=== PATIENT | female | born 1955 | race Caucasian/White ===

== ENCOUNTER 2019-02-26 13:45 | Emergency (ER) | payer MEDICARE ==
[~2019-02-26] VITALS: Ht 152.4 cm; Wt 117.7 kg
--- OUTSIDE RECORDS SUMMARY | ~2019-02-26 | XMS | Clinical Summary ---
Demographics + + + | Address | [address] | | | [place] [address] | + + + | Home Phone | | + + + | Preferred Language | Unknown | + + + | Marital Status | Single | + + + | Jehovah'S Witness Affiliation | Unknown | + + + | Race | Unknown | + + + | Ethnic Group | Unknown | + + + Author + + + | Author | [facility] | + + + | Organization | [facility] | + + + | Address | Unknown | + + + | Phone | Unavailable | + + + Support + + + + + | Name | Relationship | Address | Phone | + + + + + | Hilary Davila | MCKENZIE | Unknown | | + + + + + | Elvira Bernal | ECON | [place] | | | | | [phone] | | + + + + + | Elijah Marie | ECON | Unknown | | + + + + + Care Team Providers + +------+ + | Care Master [place] Name | Role | Phone | + +------+ + | Vasu Rojo DO | PP | | + +------+ + Allergies No Known Allergies Current Medications + + +--------+---------+------+------+-------+ | Prescription | Sig. | Disp. | Refills | Star | End | Statu | | | | | | t | Date | s | | | | | | Date | | | + + +--------+---------+------+------+-------+ | quinapril | Take 5 mg by mouth | | | | | Activ | | (ACCUPRIL) 5 MG | daily. | | | | | e | | tablet | | | | | | | + + +--------+---------+------+------+-------+ | | Inhale 1 puff into | | | | | Activ | | fluticasone-salmeter | the lungs 2 (two) | | | | | e | | ol (ADVAIR) 250-50 | times daily. | | | | | | | MCG/DOSE AEPB | | | | | | | + + +--------+---------+------+------+-------+ | albuterol | Inhale 2 puffs into | | | | | Activ | | (PROVENTIL | the lungs every 6 | | | | | e | | HFA;VENTOLIN HFA) | (six) hours as | | | | | | | 108 (90 BASE) | needed. | | | | | | | MCG/ACT inhaler | | | | | | | + + +--------+---------+------+------+-------+ | citalopram | Take 40 mg by mouth | | | | | Activ | | (CELEXA) 40 MG | daily. | | | | | e | | tablet | | | | | | | + + +--------+---------+------+------+-------+ | lovastatin | Take 40 mg by mouth | | | | | Activ | | (MEVACOR) 40 MG | nightly. | | | | | e | | tablet | | | | | | | + + +--------+---------+------+------+-------+ | trazodone | Take 100 mg by mouth | | | | | Activ | | (DESYREL) 100 MG | nightly. | | | | | e | | tablet | | | | | | | + + +--------+---------+------+------+-------+ | Cholecalciferol | Take 2,000 Units by | | | | | Activ | | 2000 UNITS CAPS | mouth daily. | | | | | e | + + +--------+---------+------+------+-------+ | spironolactone | Take 1 tablet by | 30 | 0 | 10/1 | | Activ | | (ALDACTONE) 100 MG | mouth daily. | tablet | | 6/20 | | e | | tablet | | | | 14 | | | + + +--------+---------+------+------+-------+ | Oxygen (outpatient | Inhale 2 L into the | | | | | Activ | | therapy) | lungs continuous. | | | | | e | + + +--------+---------+------+------+-------+ | metoclopramide | plaese do take | 60 | 0 | 10/2 | | Activ | | (REGLAN) 10 MG | within 20 min meals | tablet | | 2/20 | | e | | tablet | BF, lunch dinner | | | 16 | | | + + +--------+---------+------+------+-------+ | allopurinol | | | | 03/1 | | Activ | | (ZYLOPRIM) 300 MG | | | | /20 | | e | | tablet | | | | 17 | | | + + +--------+---------+------+------+-------+ | furosemide (LASIX) | | | | 01/0 | | Activ | | 80 MG tablet | | | | 4/20 | | e | | | | | | 17 | | | + + +--------+---------+------+------+-------+ | potassium chloride | | | | 01/0 | | Activ | | (K-TAB) 10 MEQ CR | | | | 5/20 | | e | | tablet | | | | 17 | | | + + +--------+---------+------+------+-------+ | Cinnamon 500 MG | Take 500 mg by mouth | | | | | Activ | | capsule | 2 (two) times | | | | | e | | | daily. | | | | | | + + +--------+---------+------+------+-------+ | ondansetron | Take 4 mg by mouth 3 | | | | | Activ | | (ZOFRAN) 4 MG tablet | (three) times daily | | | | | e | | | as needed for | | | | | | | | Nausea. | | | | | | + + +--------+---------+------+------+-------+ | aspirin 325 MG | Take 325 mg by mouth | | | | | Activ | | tablet | daily with | | | | | e | | | breakfast. | | | | | | + + +--------+---------+------+------+-------+ | fish oil omega-3 | Take 1 g by mouth | | | | | Activ | | fatty acids 1000 MG | daily. | | | | | e | | capsule | | | | | | | + + +--------+---------+------+------+-------+ | Turmeric Curcumin | Take 500 mg by mouth | | | | | Activ | | 500 MG CAPS | daily. | | | | | e | + + +--------+---------+------+------+-------+ | promethazine | Take 25 mg by mouth | | | | | Activ | | (PHENERGAN) 25 MG | every 6 (six) hours | | | | | e | | tablet | as needed for | | | | | | | | Nausea. | | | | | | + + +--------+---------+------+------+-------+ | allopurinol | Take 200 mg by mouth | | | 04/1 | 04/0 | Disco | | (ZYLOPRIM) 100 MG | daily. | | | 5/20 | 3/20 | ntinu | | tablet | | | | 13 | 19 | ed | + + +--------+---------+------+------+-------+ | meloxicam (MOBIC) | Take 15 mg by mouth | | | | 04/0 | Disco | | 15 MG tablet | daily. | | | | 3/20 | ntinu | | | | | | | 19 | ed | + + +--------+---------+------+------+-------+ Active Problems + + + | Problem | Noted Date | + + + | Rectal bleeding | 04/17/2016 | + + + | Leukocytosis | 11/27/2015 | + + + | Elevated lipase on 11/26/15 | 11/27/2015 | + + + | Renal mass--seen on CT scan--should f/u with urology as | 11/27/2015 | | outpatient | | + + + | Gastroparesis | 2014 | + + + | Nausea & vomiting | 06/01/2014 | + + + | SIRS (systemic inflammatory response syndrome) | 06/01/2014 | + + + | ARF (acute renal failure) | 06/01/2014 | + + + | Insomnia | 06/01/2014 | + + + | Hyperuricemia | 09/12/2012 | + + + | CKD (chronic kidney disease), stage III | 05/23/2012 | + + + | Diabetes mellitus (HCC) | 05/23/2012 | + + + | Essential hypertension, benign | 05/23/2012 | + + + | Morbid obesity (HCC) | 05/23/2012 | + + + | Pulmonary embolism (HCC) | 05/23/2012 | + + + + + | Overview: In 2003. Was on oral anticoag for <1 yr. | + + + + + | Dyslipidemia | 05/23/2012 | + + + | Vitamin D deficiency | 05/23/2012 | + + + | COPD (chronic obstructive pulmonary disease) | 05/23/2012 | + + + | DARIO on CPAP | 05/23/2012 | + + + Resolved Problems + + + + | Problem | Noted | Resolved | | | Date | Date | + + + + | Hypokalemia | 04/17/20 | | | | 16 | 7 | + + + + Encounters +--------+ + + + + | Date | Type | Specialty | Care Team | Description | +--------+ + + + + | 02/22/ | Office | | Kip Baez, | CKD (chronic kidney | | 2018 | Visit | | ACCOUNTING/FINANCE TUTOR | disease), stage III | | | | | | (Primary Dx); | | | | | | Essential | | | | | | hypertension, | | | | | | benign; | | | | | | Hyperuricemia | +--------+ + + + + | 02/17/ | Documentati | | César | Stacie Only (02/16/19) | | 2019 | on Only | | [place] | | +--------+ + + + + | 02/17/ | Orders Only | | Lindsey, | CKD (chronic kidney | | 2019 | | | [place] | disease), stage III; | | | | | | Essential | | | | | | hypertension, | | | | | | benign; | | | | | | Hyperuricemia | +--------+ + + + + from Last 3 Months Immunizations + + + + | Name | Dates Previously Given | Next Due | + + + + | INFLUENZA PF, | 08/06/2017, 09/11/2015, 09/04/2014 | | | QUADRIVALENT | | | | (PED/ADOL/ADULT) | | | + + + + | INFLUENZA | 09/04/2014 | | | QUADRIVALENT 36+ MO | | | | PRESERV FREE | | | + + + + | Influenza, Trivalent | 09/08/2013, 09/01/2012, 09/02/2009, | | | W/Preservative | 08/31/2008, 09/29/2007, 09/01/2006, | | | | 10/05/2003 | | + + + + | Pneumococcal | 09/08/2013, 11/05/2009, 09/18/2004 | | | Polysaccharide | | | | 23-valent | | | + + + + | Tdap | 09/08/2013, 11/05/2009 | | + + + + Family History + + +------+ + | Medical History | Relation | Name | Comments | + + +------+ + | Cancer | Mother | | | + + +------+ + | Heart defect | Mother | | | + + +------+ + | Cancer | Sister | | | + + +------+ + + +------+ + + | Relation | Name | Status | Comments | + +------+ + + | Maternal Grandmother | | Alive | | + +------+ + + | Mother | | | | + +------+ + + | Sister | | | | + +------+ + + Social History + + + +--------+------+ | Tobacco Use | Types | Packs/Day | Years | Date | | | | | Used | | + + + +--------+------+ | Former Smoker | Cigarettes | 1 | 40 | | + + + +--------+------+ + +---+---+---+ | Smokeless Tobacco: | | | | | Never Used | | | | + +---+---+---+ + + +---------+ + | Alcohol Use | Drinks/We | oz/Week | Comments | | | ek | | | + + +---------+ + | No | | | | + + +---------+ + + + + | Sex Assigned at | Date Recorded | | | | + + + | Not on file | | + + + Last Filed Vital Signs + + + + | Vital Sign | Reading | Time Taken | + + + + | Blood Pressure | 100/58 | 02/22/2019 10:16 AM PDT | + + + + | Pulse | 78 | 02/22/2019 10:16 AM PDT | + + + + | Temperature | 36.7 C (98 F) | 02/09/2018 12:56 PM PDT | + + + + | Respiratory Rate | 18 | 09/12/2016 11:30 AM PDT | + + + + | Oxygen Saturation | 96% | 02/22/2019 10:16 AM PDT | + + + + | Inhaled Oxygen | - | - | | Concentration | | | + + + + | Weight | 110.3 kg (243 lb 1.6 | 02/22/2019 10:16 AM PDT | | | oz) | | + + + + | Height | 152.4 cm (5') | 02/22/2019 10:16 AM PDT | + + + + | Body Mass Index | 47.48 | 02/22/2019 10:16 AM PDT | + + + + Plan of Treatment + + + + + | Health Maintenance | Due Date | Last Done | Comments | + + + + + | Diabetic Eye Exam | | | | | | 4 | | | + + + + + | Diabetic Foot Exam | | | | | | 4 | | | + + + + + | Cervical Cancer | | | | | Screening (Pap) | 4 | | | + + + + + | Breast Cancer | | | | | Screening | 4 | | | | (Mammogram) | | | | + + + + + | Vaccine: Zoster (1 | | | | | of 2) | 4 | | | + + + + + | Vaccine: | | 09/08/2013, 11/05/2009, | | | Pneumococcal 19-64 | 4 | 09/18/2004 | | | Highest Risk (3 of 3 | | | | | - PCV13) | | | | + + + + + | Statin Therapy | | | | | (optimal intensity) | 6 | | | + + + + + | Microalbumin | | 01/27/2017, 03/14/2014 | | | Screening | 8 | | | + + + + + | Hemoglobin A1c | | 08/03/2018, 01/27/2017, | | | | 9 | 11/28/2015, Additional history | | | | | exists | | + + + + + | Vaccine: Influenza | | 08/06/2017, 09/11/2015, | | | (Season Ended) | 9 | 09/04/2014, Additional history | | | | | exists | | + + + + + | Vaccine: | | 09/08/2013, 11/05/2009 | | | Dtap/Tdap/Td (3 - | 3 | | | | Td) | | | | + + + + + | Colon Cancer | | 04/17/2016 | | | Screening | 6 | | | | (Colonoscopy) | | | | + + + + + Procedures + +--------+ + + + | Procedure Name | Priori | Date/Time | Associated Diagnosis | Comments | | | ty | | | | + +--------+ + + + | URIC ACID | Routin | 02/16/2019 | | Results for this | | | e | 10:45 AM | | procedure are in the | | | | PDT | | results section. | + +--------+ + + + | PROTEIN / CREATININE | Routin | 02/16/2019 | CKD (chronic | Results for this | | RATIO, URINE | e | 10:45 AM | kidney disease), | procedure are in the | | | | PDT | stage III Essential | results section. | | | | | hypertension, | | | | | | benign | | | | | | Hyperuricemia | | + +--------+ + + + | RENAL FUNCTION PANEL | Routin | 02/16/2019 | CKD (chronic | Results for this | | | e | 10:45 AM | kidney disease), | procedure are in the | | | | PDT | stage III Essential | results section. | | | | | hypertension, | | | | | | benign | | | | | | Hyperuricemia | | + +--------+ + + + | MAGNESIUM | Routin | 02/16/2019 | CKD (chronic | Results for this | | | e | 10:45 AM | kidney disease), | procedure are in the | | | | PDT | stage III Essential | results section. | | | | | hypertension, | | | | | | benign | | | | | | Hyperuricemia | | + +--------+ + + + | CBC W/AUTO DIFF | Routin | 02/16/2019 | CKD (chronic | Results for this | | (REFLEX TO MANUAL) | e | 10:45 AM | kidney disease), | procedure are in the | | | | PDT | stage III Essential | results section. | | | | | hypertension, | | | | | | benign | | | | | | Hyperuricemia | | + +--------+ + + + from Last 3 Months Results Protein / creatinine ratio, urine (02/16/2019 10:45 AM) + +-------+ + + | Component | Value | Ref Range | Performed At | + +-------+ + + | UR | 127.7 | 0 - 150 | [facility] | | PROTEIN/CREATININE | | | LABORATORY | + +-------+ + + + + | Specimen | + + | Urine | + + + + + + + | Performing | Address | City/State/Zipcode | Phone Number | | Organization | | | | + + + + + | [facility] | [address] | [place] [address] | [phone] | | LABORATORY | [address] | | | + + + + + CBC W/Auto Diff (Reflex to Manual) (02/16/2019 10:45 AM) + + + + + | Component | Value | Ref Range | Performed At | + + + + + | WBC | 6.7 | 4.5 - 11.0 10^3/mL | [facility] | | | | | LABORATORY | + + + + + | RBC | 4.77 | 3.8 - 5.1 10^6/ L | [facility] | | | | | LABORATORY | + + + + + | HGB | 14.7 | 12.0 - 16.0 g/dL | [facility] | | | | | LABORATORY | + + + + + | HCT | 44.5 | 35 - 45 % | [facility] | | | | | LABORATORY | + + + + + | MCV | 93.4 | 81 - 99 fL | [facility] | | | | | LABORATORY | + + + + + | MCH | 31 | 27 - 33 pg | [facility] | | | | | LABORATORY | + + + + + | MCHC | 33 | 30 - 36 g/dL | [facility] | | | | | LABORATORY | + + + + + | PLT | 200 | 140 - 440 K/ L | [facility] | | | | | LABORATORY | + + + + + | RDW SD | 13.5 | 10.5 - 15.0 % | [facility] | | | | | LABORATORY | + + + + + | MPV | | fL | [facility] | | | | | LABORATORY | + + + + + | DIFF TYPE | | | [facility] | | | | | LABORATORY | + + + + + | NEUTROPHILS | 69.1 | 39 - 80 % | [facility] | | | | | LABORATORY | + + + + + | LYMPHOCYTES | 21.2 (A) | 24 - 44 % | [facility] | | | | | LABORATORY | + + + + + | MONOCYTES | 6.8 | 0 - 12 % | [facility] | | | | | LABORATORY | + + + + + | EOSINOPHILS | 2.3 | 0 - 6 % | [facility] | | | | | LABORATORY | + + + + + | BASOPHILS | 0.6 | 0 - 2 % | [facility] | | | | | LABORATORY | + + + + + | NEUTROPHILS ABS | | / L | [facility] | | | | | LABORATORY | + + + + + | LYMPHOCYTES ABS | | / L | [facility] | | | | | LABORATORY | + + + + + | MONOCYTES ABS | | / L | [facility] | | | | | LABORATORY | + + + + + | EOSINOPHILS ABS | | / L | [facility] | | | | | LABORATORY | + + + + + | BASOPHILS ABS | | / L | [facility] | | | | | LABORATORY | + + + + + + + | Specimen | + + | Blood | + + + + + + + | Performing | Address | City/State/Zipcode | Phone Number | | Organization | | | | + + + + + | [facility] | [address] | [place] [address] | [phone] | | LABORATORY | [address] | | | + + + + + Uric acid (02/16/2019 10:45 AM) + +-------+ + + | Component | Value | Ref Range | Performed At | + +-------+ + + | URIC ACID | 2.6 | 2.3 - 6.6 | | + +-------+ + + + + | Specimen | + + | Blood | + + Magnesium (02/16/2019 10:45 AM) + +-------+ + + | Component | Value | Ref Range | Performed At | + +-------+ + + | MAGNESIUM | 2.1 | 1.7 - 2.5 mg/dL | [facility] | | | | | LABORATORY | + +-------+ + + + + | Specimen | + + | Blood | + + + + + + + | Performing | Address | City/State/Zipcode | Phone Number | | Organization | | | | + + + + + | [facility] | [address] | [place] [address] | [phone] | | LABORATORY | [address] | | | + + + + + Renal function panel (02/16/2019 10:45 AM) + +--------+ + + | Component | Value | Ref Range | Performed At | + +--------+ + + | GLUCOSE | 86 | 70 - 100 mg/dL | [facility] | | | | | LABORATORY | + +--------+ + + | BUN | 17 | 6 - 23 mg/dL | [facility] | | | | | LABORATORY | + +--------+ + + | CREATININE | 0.95 | 0.70 - 1.25 mg/dL | [facility] | | | | | LABORATORY | + +--------+ + + | PHOSPHORUS | 3.4 | 2.5 - 5.0 mg/dL | [facility] | | | | | LABORATORY | + +--------+ + + | Albumin | 4.3 | 3.5 - 5.0 | [facility] | | | | | LABORATORY | + +--------+ + + | SODIUM | 141 | 132 - 143 mmol/L | [facility] | | | | | LABORATORY | + +--------+ + + | POTASSIUM | 4.5 | 3.6 - 5.1 mmol/L | [facility] | | | | | LABORATORY | + +--------+ + + | CHLORIDE | 100 | 95 - 112 mmol/L | [facility] | | | | | LABORATORY | + +--------+ + + | CO2 | 28 | 19 - 31 mmol/L | [facility] | | | | | LABORATORY | + +--------+ + + | ANION GAP AGAP | 17.5 | 7 - 21 mmol/L | [facility] | | | | | LABORATORY | + +--------+ + + | GFR MDRD Non Af Amer | | | [facility] | | | | | LABORATORY | + +--------+ + + | Phosphorus,Inorganic | | | [facility] | | | | | LABORATORY | + +--------+ + + | BUN/CREAT | 17.9 | 6.0 - 28.6 | [facility] | | | | | LABORATORY | + +--------+ + + | CALCIUM | 9.5 | 8.5 - 10.3 mg/dL | [facility] | | | | | LABORATORY | + +--------+ + + | EGFR | 59 (A) | 60 - 140 mg/dL | [facility] | | | | | LABORATORY | + +--------+ + + + + | Specimen | + + | Blood | + + + + + + + | Performing | Address | City/State/Zipcode | Phone Number | | Organization | | | | + + + + + | [facility] | [address] | [place] [address] | [phone] | | LABORATORY | [address] | | | + + + + + from Last 3 Months Insurance + +--------+ +------+-------+ + | Payer | Benefi | Subscriber | Type | Phone | Address | | | t Plan | ID | | | | | | / | | | | | | | Group | | | | | + +--------+ +------+-------+ + | MEDICARE | MEDICA | [id number] | | | [address] | | | RE | | | | [place] [address] | | | IP-OP | | | | | + +--------+ +------+-------+ + | [facility] | [place] | [id number] | | | | | | | | | | | | | HEALTH | | | | | | | CARE - | | | | | | | AARP | | | | | + +--------+ +------+-------+ + + +--------+ +--------+ + + | Guarantor Name | Accoun | Relation to | Date | Phone | Billing Address | | | t Type | Patient | of | | | | | | | | | | + +--------+ +--------+ + + | DAY DAVILA | Person | Self [birth year] Home: | [address] | | | al/Fam | | 4 | [phone] | [place] | | | [place]uate | | | [phone] | [phone] | + +--------+ +--------+ + +"
--- OUTSIDE RECORDS SUMMARY | ~2019-02-26 | XMS | Clinical Summary ---
Demographics + + + | Address | [address] | | | [place] [address] | + + + | Home Phone | | + + + | Preferred Language | Unknown | + + + | Marital Status | Single | + + + | Orthodox Affiliation | Unknown | + + + | Race | White | + + + | Ethnic Group | Not or | + + + Author + + + | Author | [facility] | + + + | Organization | [facility] | + + + | Address | Unknown | + + + | Phone | Unavailable | + + + Support + + + + + | Name | Relationship | Address | Phone | + + + + + | PENELOPE CHEN | ECON | [address] | | | | | [place] | | | | | [address] | | + + + + + | CESARFATEMEH | ECON | Unknown | | + + + + + Care Team Providers + +------+ + | Care Field Associate Name | Role | Phone | + +------+ + | Vasu Rojo DO | PP | | + +------+ + Source Comments YUE is fully live on both [facility] Ambulatory and [facility] InPatient.[facility] Allergies Not on File Current Medications Not on file Active Problems Not on file Social History + +-------+ +--------+------+ | Tobacco Use | Types | Packs/Day | Years | Date | | | | | Used | | + +-------+ +--------+------+ | Never Assessed | | | | | + +-------+ +--------+------+ + + + | Sex Assigned at | Date Recorded | | | | + + + | Not on file | | + + + Plan of Treatment + + + + + | Health Maintenance | Due Date | Last Done | Comments | + + + + + | Influenza (Flu) | | | | | vaccination (#1) | 8 | | | + + + + + Results Not on filefrom Last 3 Months Insurance + +--------+ +--------+ + + | Payer | Benefi | Subscriber | Type | Phone | Address | | | t Plan | ID | | | | | | / | | | | | | | Group | | | | | + +--------+ +--------+ + + | MEDICARE | MEDICA | xxxxxxxxxx | Medica | [phone] [address] | | | RE A & | | re | [phone] | [place] [phone] | | | B | | | | | + +--------+ +--------+ + + | COMMERCIAL | INDIVI | xxxxxxxxx | Indemn | | | | INDIVIDUAL | DUAL | | ity | | | | | COMMER | | | | | | | CIAL | | | | | + +--------+ +--------+ + + + +--------+ +--------+ + + | Guarantor Name | Accoun | Relation to | Date | Phone | Billing Address | | | t Type | Patient | of | | | | | | | | | | + +--------+ +--------+ + + | GABRIEL HOUSTON | Person | Self [birth year] | Home: | [address] | | | al/Johnny | | [phone] | [phone] | [place] [address] | | | cuate | | | [phone] | | + +--------+ +--------+ + +"
--- OUTSIDE RECORDS SUMMARY | ~2019-02-26 | XMS ---
Demographics + + + | Address | [address] | | | [place] [address] | + + + | Preferred Language | Unknown | + + + | Marital Status | Unknown | + + + | Alevism Affiliation | Unknown | + + + | Race | Unknown | + + + | Ethnic Group | Unknown | + + + Author + + + | Author | [facility] | + + + | Organization | [facility] | + + + | Address | 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 | | | Active | [id number] | | | | | | | | | | | neuropathy | | | | | | +---------+ + + +--------+ + + | Problem | Benign | I10 | | | Active | [id number] | | | essential | | | | | | | | HTN | | | | | | +---------+ + + +--------+ + + | Problem | 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 | | | Active | [id number] | | | sis due to | | | | | | | | secondary | | | | | | | | diabetes | | | | | | +---------+ + + +--------+ + + | 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 | [id number] | | | diabetes | | | | | | | | mellitus | | | | | | | | without | | | | | | | | complicati | | | | | | | | ons | | | | | | +---------+ + + +--------+ + + | Problem | Vomiting | 787.03 | | | Active | [id number] | +---------+ + + +--------+ + + | Problem | Diabetes | E11.8 | | | Active | [id number] | | | mellitus | | | | | | | | type 2 | | | | | | | | with | | | | | | | | complicati | | | | | | | | ons | | | | | | +---------+ + + +--------+ + + | Problem | Hyperlipid | | E78.5 | | Active | [id number] | | | emia | | | | | | +---------+ + + +--------+ + + | Problem | Hyperlipid | 272.4 | | | Active | [id number] | | | emia | | | | | | +---------+ + + +--------+ + + | Problem | Morbid | 278.01 | | | Active | [id number] | | | obesity | | | | | | +---------+ + + +--------+ + + | Problem | COPD | 496 | | | Active | [id number] | | | [Chronic | | | | | | | | obstructiv | | | | | | | | e | | | | | | | | pulmonary | | | | | | | | disease] | | | | | | +---------+ + + +--------+ + + | Problem | Hypertensi | 401.9 | | | Active | [id number] | | | on | | | | | | +---------+ + + +--------+ + + | Problem | DEPEND-SUP | V46.2 | | | Active | | | | PLEMENT | | | | | | | | OXYGEN | | | | | | +---------+ + + +--------+ + + | Problem | Diabetes | 250.80 | | | Active | [id number] | | | mellitus | | | | | | | | type 2 or | | | | | | | | unspecifie | | | | | | | | d type | | | | | | | | with other | | | | | | | | | | | | | | | | manifestat | | | | | | | | ions, not | | | | | | +---------+ + + +--------+ + + | Problem | LONG-TERM | V58.67 | | | Active | [id number] | | | USE OF | | | | | | | | INSULIN | | | | | | +---------+ + + +--------+ + + ALLERGIES Unknown Allergies SOCIAL HISTORY No smoking Hx information available PLAN OF CARE VITAL SIGNS MEDICATIONS Unknown Medications RESULTS No Results PROCEDURES No Known procedures IMMUNIZATIONS No Known Immunizations"
--- OUTSIDE RECORDS SUMMARY | ~2019-02-26 | XMS ---
Demographics + + + | Address | [address] | | | [place] [address] | + + + | Preferred Language | Unknown | + + + | Marital Status | Unknown | + + + | Baptism Affiliation | Unknown | + + + | Race | Unknown | + + + | Ethnic Group | Unknown | + + + Author + + + | Author | [facility] | + + + | Organization | [facility] | + + + | Address | 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 | | | Active | 479559374 | | | | | | | | | | | neuropathy | | | | | | +---------+ + + +--------+ + + | Problem | Benign | I10 | | | Active | 08814719 | | | essential | | | | | | | | HTN | | | | | | +---------+ + + +--------+ + + | Problem | 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 | | | Active | 514689219 | | | sis due to | | | | | | | | secondary | | | | | | | | diabetes | | | | | | +---------+ + + +--------+ + + | 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 | 570491200 | | | diabetes | | | | | | | | mellitus | | | | | | | | without | | | | | | | | complicati | | | | | | | | ons | | | | | | +---------+ + + +--------+ + + | Problem | Vomiting | 787.03 | | | Active | 320644932 | +---------+ + + +--------+ + + | Problem | Diabetes | E11.8 | | | Active | 899644186 | | | mellitus | | | [...] | | E78.5 | | Active | 20991925 | | | emia | | | | | | +---------+ + + +--------+ + + | Problem | Hyperlipid | 272.4 | | | Active | 12528766 | | | emia | | | | | | +---------+ + + +--------+ + + | Problem | Morbid | 278.01 | | | Active | 557232180 | | | obesity | | | | | | +---------+ + + +--------+ + + | Problem | COPD | 496 | | | Active | 83412553 | | | [Chronic | | | | | | | | obstructiv | | | | | | | | e | | | | | | | | pulmonary | | | | | | | | disease] | | | | | | +---------+ + + +--------+ + + | Problem | Hypertensi | 401.9 | | | Active | 06346873 | | | on | | | | | | +---------+ + + +--------+ + + | Problem | DEPEND-SUP | V46.2 | | | Active | | | | PLEMENT | | | | | | | | OXYGEN | | | | | | +---------+ + + +--------+ + + | Problem | Diabetes | 250.80 | | | Active | 68053585 | | | mellitus | | | [...] | V58.67 | | | Active | 061785116 | | | USE OF | | | | | | | | INSULIN | | | | | | +---------+ + + +--------+ + + ALLERGIES Unknown Allergies SOCIAL HISTORY No smoking Hx information available PLAN OF CARE VITAL SIGNS MEDICATIONS Unknown Medications RESULTS No Results PROCEDURES No Known procedures IMMUNIZATIONS No Known Immunizations"
--- OUTSIDE RECORDS SUMMARY | ~2019-02-26 | XMS | Encounter Summary ---
Demographics + + + | Address | [address] | | | [place] [address] | + + + | Home Phone | | + + + | Preferred Language | Unknown | + + + | Marital Status | Single | + + + | Confucianist Affiliation | Unknown | + + + | Race | Unknown | + + + | Ethnic Group | Unknown | + + + Author + + + | Author | [facility] | + + + | Organization | [facility] | + + + | Address [...] [place] | | | | | [address] | | + + + + + | [place] [facility] | ECON | Unknown | | + + + + + Care Team Providers + +------+ + | Care Dairy Truck Driver Name | Role | Phone | + +------+ + | Vasu Rojo DO | PCP | | + +------+ + Encounter Details +--------+ + + + + | Date | Type | Department | Care Team | Description | +--------+ + + + + | 02/17/ | Orders Only | [facility] | [place], | CKD (chronic kidney | | 2019 | | [address] [address] [place] [address] | disease), stage III; | | | | [address] | | Essential | | | | [place] [address] | | hypertension, | | | | [phone] | | benign; | | | | | | Hyperuricemia | +--------+ + + + + Social History + + + [...] on file | | + + + as of this encounter Plan of Treatment Not on fileas of this encounter Procedures + +--------+ + + + | [...] | | + +--------+ + + + in this encounter Results Protein / creatinine ratio, urine (02/16/2019 [...] + + + | [facility] | [address] | [place] [address] | [phone] | | LABORATORY | Blvd. | | | + + + + + Renal function panel (02/16/2019 10:45 AM) + +--------+ + + | Component | Value | Ref Range | Performed At | + +--------+ + + | GLUCOSE | 86 | 70 - 100 mg/dL | [facility] | | | | [...] + + + | [facility] | [address] | [place] [address] | [phone] | | LABORATORY | Blvd. | | | + + + + + Magnesium (02/16/2019 10:45 AM) + [...] + + + | [facility] | [address] | [place] [address] | [phone] | | LABORATORY | Blvd. | | [...] + + + | [facility] | [address] | [place] [address] | [phone] | | LABORATORY | Blvd. | | | + + + + + in this encounter Visit Diagnoses + + | Diagnosis | + + | CKD (chronic kidney disease), stage III | + + | Essential hypertension, benign | + + | Hyperuricemia | + + | Other abnormal blood chemistry | + +"
--- OUTSIDE RECORDS SUMMARY | ~2019-02-26 | XMS ---
Demographics + + + | Address | [address] | | | [place] [address] | + + + | Preferred Language | Unknown | + + + | Marital Status | Unknown | + + + | Worship Affiliation | Unknown | + + + | Race | Unknown | + + + | Ethnic Group | Unknown | + + + Author + + + | Author | [facility] | + + + | Organization | [facility] | + + + | Address | [address] | | | [place] [address] | + + + | Phone | | + + + Care Team Providers + + + + | Care Miscellaneous Machine Operator Name | Role | Phone | + + + + Unavailable | Unavailable | + + + + PROBLEMS +---------+ + + +--------+ + + | Type | Condition | ICD9-CM | [id number] | Onset | Condition | SNOMED | | | | Code | Code | Dates | Status | Code | +---------+ + + +--------+ + + | Problem | Peripheral | 356.9 | | | Active | 203455241 | | | | | | | | | | | neuropathy | | | | | | +---------+ + + +--------+ + + | Problem | Vomiting | 787.03 | | | Active | 501951508 | +---------+ + + +--------+ + + | Problem | Diabetes | 250.00 | | | Active | 996702027 | +---------+ + + +--------+ + + | 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 | | | (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 | | | | | | | | disease) | | | | | | +---------+ + + +--------+ + + | Problem | Benign | I10 | | | Active | 62629105 | | | essential | | | | | | | | HTN | | | | | | +---------+ + + +--------+ + + | Problem | Hyperlipid | | E78.5 | | Active | 84420916 | | | emia | | | | | | +---------+ + + +--------+ + + | 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 | 585092344 | | | diabetes | | | | | | | | mellitus | | | | | | | | without | | | | | | | | complicati | | | | | | | | ons | | | | | | +---------+ + + +--------+ + + | Problem | 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 | | | Active | 021336045 | | | sis due to | | | | | | | | secondary | | | | | | | | diabetes | | | | | | +---------+ + + +--------+ + + | Problem | Diabetes | E11.8 | | | Active | 130884735 | | | mellitus | | | [...] | 272.4 | | | Active | 41446440 | | | emia | | | | | | +---------+ + + +--------+ + + | Problem | Hypertensi | 401.9 | | | Active | 18013786 | | | on | | | | | | +---------+ + + +--------+ + + | Problem | COPD | 496 | | | Active | 11403996 | | | [Chronic | | | | | | | | obstructiv | | | | | | | | e | | | | | | | | pulmonary | | | | | | | | disease] | | | | | | +---------+ + + +--------+ + + | Problem | DEPEND-SUP | V46.2 | | | Active | [id number] | | | PLEMENT | | | | | 07 | | | OXYGEN | | | | | | +---------+ + + +--------+ + + | Problem | Diabetes | 250.80 | | | Active | 51124520 | | | mellitus | | | [...] | V58.67 | | | Active | 127368867 | | | USE OF | | | | | | | | INSULIN | | | | | | +---------+ + + +--------+ + + | Problem | Morbid | 278.01 | | | Active | 713197375 | | | obesity | | | | | | +---------+ + + +--------+ + + | Problem | Edema | 782.3 | | | Active | 92421122 | +---------+ + + +--------+ + + ALLERGIES + + + + +---------+ | Substance | Reaction | Event Type | Date | Status | + + + + +---------+ | N.K.D.A. | Unknown | Non Drug | Jun, | Unknown | | | | Allergy | | | + + + + +---------+ SOCIAL HISTORY No smoking Hx information available PLAN OF CARE + +---------+ | Activity | Details | + +---------+ +---+ | | +---+ + + + | Follow Up | 3 Months Reason:null | + + + | Pending Test | X ray : Hip Complete 2+views LT | + + + VITAL SIGNS + + + + | Height | 61 in | 2017-07-09 | + + + + | Weight | 262.0 lbs | 2017-07-09 | + + + + | BMI | 49.50 kg/m2 | 2017-07-09 | + + + + | Temperature | 99.1 degrees Fahrenheit | 2017-07-09 | + + + + | Heart Rate | 83 /min | 2017-07-09 | + + + + | Blood pressure systolic | 128 mm Hg | 2017-07-09 | + + + + | Blood pressure diastolic | 70 mm Hg | 2017-07-09 | + + + + MEDICATIONS + + + + + + + +--------+ | Medicati | Instruct | Dosage | Frequenc | Start | End Date | Duration | Status | | on | ions | | y | Date | | | | + + + + + + + +--------+ | Zofran 4 | Orally q | 1 | | 19 May, | | 30 | Active | | MG | 6hr | tablets | | 2017 | | day(s) | | | | prn | | | | | | | + + + + + + + +--------+ | GlipiZID | | TAKE 1 | | | | 90 | Active | | E 10 MG | | TABLET | | | | | | | | | TWICE | | | | | | | | | DAILY | | | | | | + + + + + + + +--------+ | Allopuri | po q day | TAKE 1 | | | | 90 | Active | | nol 300 | | TABLET | | | | | | | MG | | ONE TIME | | | | | | | | | DAILY | | | | | | + + + + + + + +--------+ | Citalopr | | TAKE 1 | | | | 90 | Active | | am | | TABLET | | | | | | | Hydrobro | | EVERY | | | | | | | mide 40 | | DAY | | | | | | | MG | | | | | | | | + + + + + + + +--------+ | Reglan | po tid | TAKE 1 | 8h | | | 30 | Active | | 10 MG | | TABLET | | | | | | | | | FOUR | | | | | | | | | TIMES | | | | | | | | | DAILY | | | | | | | | | 30 | | | | | | | | | MINUTES | | | | | | | | | BEFORE | | | | | | | | | MEALS | | | | | | | | | AND AT | | | | | | | | | BEDTIME | | | | | | + + + + + + + +--------+ | Furosemi | | TAKE 1 | | | | 90 | Active | | de 80 MG | | TABLET | | | | | | | | | TWICE | | | | | | | | | DAILY | | | | | | + + + + + + + +--------+ | Aspirin | Orally | 1 tablet | 24h | | | 30 | Active | | 325 MG | Once a | | | | | day(s) | | | | day | | | | | | | + + + + + + + +--------+ | Advair | | INHALE 1 | | | | 90 | Active | | Diskus | | PUFF | | | | | | | 250-50 | | EVERY 12 | | | | | | | MCG/DOSE | | HOURS | | | | | | + + + + + + + +--------+ | Lorazepa | Orally | 1 tablet | | | | 90 days | Active | | m 0.5 MG | PRN | | | | | | | + + + + + + + +--------+ | Salicyli | External | as | | | | | Active | | c Acid | ly prn | directed | | | | | | + + + + + + + +--------+ | Spironol | Orally | 1 tablet | 24h | Jun, | 13 Aug, | 30 | Active | | actone | Once a | | | 2017 | 2018 | day(s) | | | 50 MG | day | | | | | | | + + + + + + + +--------+ | Trazodon | | TAKE 1 | | | | 90 | Active | | e HCl | | TABLET | | | | | | | 100 MG | | AT | | | | | | | | | BEDTIME | | | | | | + + + + + + + +--------+ | Albutero | Inhalati | 3 ml as | 4h | 03 Apr, | | 90 days | Active | | l | on every | needed | | 2011 | | | | | Sulfate | 4 hrs | | | | | | | | (2.5 | | | | | | | | | MG/3ML) | | | | | | | | | 0.083% | | | | | | | | + + + + + + + +--------+ | Ventolin | | INHALE 2 | | | | 25 | Active | | HFA 108 | | PUFFS | | | | | | | (90 | | EVERY 6 | | | | | | | Base) | | TO 8 | | | | | | | MCG/ACT | | HOURS | | | | | | | | | NEEDED | | | | | | + + + + + + + +--------+ | Potassiu | | TAKE 1 | | | | 90 | Active | | m | | TABLET | | | | | | | Chloride | | EVERY | | | | | | | CR 10 | | DAY | | | | | | | MEQ | | | | | | | | + + + + + + + +--------+ | Lovastat | | TAKE 1 | | | | 90 | Active | | in 40 MG | | TABLET | | | | | | | | | ONE TIME | | | | | | | | | DAILY | | | | | | | | | WITH A | | | | | | | | | MEAL | | | | | | + + + + + + + +--------+ | Prometha | Orally q | 1 tablet | | 09 April, | 14 March, | 30 | Active | | zine HCl | 6hr prn | as | | 2017 | 2018 | day(s) | | | 25 MG | | needed | | | | | | + + + + + + + +--------+ | Citalopr | by mouth | one | 24h | | | 90 days | Active | | am 40mg | daily | | | | | | | + + + + + + + +--------+ | Potassiu | | TAKE 1 | | | | 90 | Active | | m | | TABLET | | | | | | | Chloride | | EVERY | | | | | | | ER 10 | | DAY | | | | | | | MEQ | | | | | | | | + + + + + + + +--------+ | Mobic 15 | Orally | 1 tablet | 24h | Jun, | 14 Dec, | 30 | Active | | MG | Once a | | | 2017 | 2018 | day(s) | | | | day | | | | | | | + + + + + + + +--------+ | Quinapri | | TAKE 1 | | | | 90 | Active | | l HCl 5 | | TABLET | | | | | | | MG | | ONE TIME | | | | | | | | | DAILY | | | | | | + + + + + + + +--------+ RESULTS No Results PROCEDURES No Known procedures IMMUNIZATIONS No Known Immunizations"
--- OUTSIDE RECORDS SUMMARY | ~2019-02-26 | XMS | Clinical Summary ---
Demographics + + + | Address | [address] | | | [place] [address] | + + + | Home Phone | | + + + | Preferred Language | Unknown | + + + | Marital Status | Single | + + + | Zoroastrianism Affiliation | Unknown | + + + [...] [place] | | | | | [address] | | + + + + + | [place] | ECON | Unknown | | + + + + + Care Team Providers + +------+ + | Care Housing Grant Analyst Name | Role | Phone | + +------+ + | Vasu Rojo DO | PP | | + +------+ + Source Comments [facility] is fully live on both [facility] and [facility] Allergies Not on File Current Medications Not [...] | re | [address] | [place] [address] | | | B | | | [...] | 4 | [phone] | [place] [address] | | | cuate | | | [address] | | + +--------+ +--------+ + +"
--- OUTSIDE RECORDS SUMMARY | ~2019-02-26 | XMS | Clinical Summary ---
Demographics + + + | Address | [address] | | | [place] [address] | + + + | Home Phone | | + + + | Preferred Language | Unknown | + + + | Marital Status | Single | + + + | Pentecostalism Affiliation | Unknown | + + + | Race | Unknown | + + + | Ethnic Group | Unknown | + + + Author + + + | Author | [facility] | + + + | Organization | [facility] | + + + | Address [...] [place] | | | | | [address] | | + + + + + | Elijah Marie | ECON | Unknown | | + + + + + Care Team Providers + +------+ + | Care Silver Recovery Operator Name | Role | Phone | [...] | | 2018 | Visit | | ASSEMBLY RIVETER | disease), stage III | | | [...] + + + | [facility] | [address] | [place] [address] | [phone] | | LABORATORY | Blvd. | | [...] + + + | [facility] | [address] | [place] [address] | [phone] | | LABORATORY | Blvd. | | [...] | + + + + + | [facility] | [address] | [place] [address] | [phone] | | LABORATORY | Blvd. | | | + + + + + Renal function panel (02/16/2019 10:45 AM) + +--------+ + + | Component | Value | Ref Range | Performed At | + +--------+ + + | GLUCOSE | 86 | 70 - 100 mg/dL | [facility] | | | | | LABORATORY | [...] | + + + + + | [facility] | [address] | [place] [address] | [phone] | | LABORATORY | Blvd. | | [...] +------+-------+ + | MEDICARE | MEDICA | [id number] | | | [address] | | | RE | | | | [place] [address] | | | IP-OP | | | | | + +--------+ +------+-------+ + | [facility] | [place] | [id number] | | | | | | | [...] | | | cuate | | | [address] | [phone] | + +--------+ +--------+ + +"
--- OUTSIDE RECORDS SUMMARY | ~2019-02-26 | XMS | Encounter Summary ---
Demographics + + + | Address | [address] | | | [place] [address] | + + + | Home Phone | | + + + | Preferred Language | Unknown | + + + | Marital Status | Single | + + + | Yarsani Affiliation | Unknown | + + + | Race | Unknown | + + + | Ethnic Group | Unknown | + + + Author + + + | Author | [facility] | + + + | Organization | [facility] | + + + | Address [...] [place] | | | | | [address] | | + + + + + | [place] | ECON | Unknown | | + + + + + Care Team Providers + +------+ + | Care Leaf Blender Name | Role | Phone | + [...] | | Essential | | | | [place] [address] | | hypertension, | | | | [phone] | | benign; | | | | [...] + + + | [facility] | [address] | [place] [address] | [phone] | | LABORATORY | Blvd. | | [...] + + + | [facility] | [address] | [place] [address] | [phone] | | LABORATORY | Blvd. | | [...] + + + | [facility] | [address] | [place] [address] | [phone] | | LABORATORY | Blvd. | | [...] | [address] | [place] [address] | [phone] | | LABORATORY | Blvd. | | | + + + + + in this encounter Visit Diagnoses + + | Diagnosis | + + | CKD (chronic kidney disease), stage III | + + | Essential hypertension, benign | + + | Hyperuricemia | + + | Other abnormal blood chemistry | + +"
--- OUTSIDE RECORDS SUMMARY | ~2019-02-26 | XMS | Encounter Summary ---
Demographics + + + | Address | [address] | | | [place] [address] | + + + | Home Phone | | + + + | Preferred Language | Unknown | + + + | Marital Status | Single | + + + | Buddhism Affiliation | Unknown | + + + | Race | Unknown | + + + | Ethnic Group | Unknown | + + + Author + + + | Author | [facility] | + + + | Organization | [facility] | + + + | Address [...] [place] | | | | | [address] | | + + + + + | FrankElijah | ECON | Unknown | | + + + + + Care Team Providers + +------+ + | Care Car Sealer Name | Role | Phone | + +------+ + | Vasu Rojo DO | PCP | | + +------+ + Encounter Details +--------+---------+ + + + | Date | Type | Department | Care Team | Description | +--------+---------+ + + + | 02/22/ | Office | [facility] | JethrojessicaKip, | CKD (chronic kidney | | 2019 | Visit | [address] | DOOR TO DOOR FUNDRAISING COLLECTOR Jairon GIRALDO | disease), stage III | | | | [address] | [address] | (Primary Dx); | | | | [place] [address] | [place] [address] | Essential | | | | [phone] | [phone] | hypertension, | | | | | | benign; | | | | | | Hyperuricemia | +--------+---------+ + + + Social History + + [...] + + + as of this encounter Last Filed Vital Signs + + + + | Vital Sign | Reading | Time Taken | + + + + | Blood Pressure | 100/58 | 02/22/2019 10:16 AM PDT | + + + + | Pulse | 78 | 02/22/2019 10:16 AM PDT | + + + + | Temperature | - | - | + + + + | Respiratory Rate | - | - | + + + + | Oxygen [...] AM PDT | + + + + in this encounter Instructions Patient Instructions - Kip Baez ARNP - 02/22/2019 10:00 AM PDTMedication Changes made at today's visit: None Next LAB WORK in about: 6 Months You do NOT need to fast for this lab work, keep hydrated. Next APPOINTMENT: in about 6 Months Please have lab work done 1 weeks prior to your appointment. Make sure you are well hydrated prior to going to the lab and are able to give a urine s ample. Call the office with any questions or concerns. Please bring all of your medications in the pharmacy bottles to every visit so a medicat ion review can be done. We recommend to measure your BP at least daily, twice daily if possible, record it and b ring record to every appointment with every healthcare provider you see. DO NOT TAKE any anti-inflammatory drugs such Ibuprofen, Diclofenac, Motrin, Advil, Salguero xicam, naprosyn (Aleve), Celebrex, decongestants containing pseudoephedrine (such as some fo johnie of Sudafed or Actifed) or herbal supplements (because of lack of FDA approval) Call our office if you have blood pressure over 150/90 on more than one occasion, or low blood pressure that is concerning. If you experience diarrhea and /or vomiting for more than 24 hours with no relief please seek medical help immediately. The treatments that are recommended to slow the progression of Chronic Kidney Disease in clude blood sugar control, blood pressure control, healthy body weight (BMI less than 30 kg/ m2), avoid sedentary lifestyle, avoid smoking/ tobacco, avoid NSAIDs, worsening nausea, vomi ting, no or low appetite and/or frequent diarrhea and avoid IV contrast. Do not drink alcohol, drink water when thirsty. If you smoke, you must quit. Smoking worsens kidney disease. Avoid caffeinated beverages such as soda pop, coffee, espresso drinks, energy drinks. Make all healthcare providers aware of the presence of kidney disease and request to adj ust all medications according to level of kidney function and to avoid nephrotoxic medicatio ns if possible, including but not limited to antibiotics. Call us with any questions. Short term use of acetaminophen (Tylenol) for fever or pain is okay. If in doubt please call our office for verification. Avoid exposure to IV contrast agents (DYE) used in CT scans, MRI's, Fluoroscopy, or in h eart catheterization procedures unless necessary or for a life saving procedure. Low salt diet, less than 2gm daily. in this encounter Progress Notes Kip Baez ARNP - 02/22/2019 10:00 AM PDTFormatting of this note may be different f rom the original. Patient Active Problem List Diagnosis CKD (chronic kidney disease), stage III Diabetes mellitus (HCC) Essential hypertension, benign Morbid obesity (HCC) Pulmonary embolism (HCC) Dyslipidemia Vitamin D deficiency COPD (chronic obstructive pulmonary disease) DARIO on CPAP Hyperuricemia Nausea & vomiting SIRS (systemic inflammatory response syndrome) ARF (acute renal failure) Insomnia Gastroparesis Leukocytosis Elevated lipase on 11/26/15 Renal mass--seen on CT scan--should f/u with urology as outpatient Rectal bleeding Dear Dr Rojo: I saw your patient Ms. Davila in the office today. she is here to F/U on her CKD & its com plications. 11/2015 She was admitted for nausea and vomiting, acute on chronic renal failure which impro krystian with IV hydration. She takes Zofran PRN for nausea. she tells me that she's had no history of urinary retention, gross hematuria or dysuria. s he has no significant incontinence symptoms. No symptoms of UTI. she has 1-2 nightly noctur ia. No history of passing kidney stones.she has no foamy urine either. her baseline Creatin ine is 1.6 mg/dL. She wears O2 per NC at 2L. she says that she feels 'good ' today. Chronic hip pains. she denies any blurred vision, t innitus, headache, fever, chills, or cough. No nausea, vomiting, abdominal pain, diarrhea, melena, or hematochezia. No chest pain, palpitation, dizziness, loss of consciousness, orthopnea, paroxysmal nocturn al dyspnea, or leg edema. She is on a CPAP at night. She was on meloxicam in the past, stopped in mid 2017. Started on celebrex in fall of 2017. The following portions of the patient's history were reviewed and updated as appropriate: a llergies, current medications, past medical history, past social history, past surgical hist ory, family history and problem list. CT abdomen pelvis done 02/2016 showin. No acute findings in the abdomen or pelvis to explain vomiting. 2. Patient is status post cholecystectomy. 3. Kidneys show mild perinephric stranding and simple lower pole cysts bilaterally testin g chronic renal disease. 4. An exophytic 2.1 cm hyperdense cyst is noted arising from the lateral upper pole of th e left kidney unchanged from November 2015. Correlation with sonography is suggested. 5. Severe right hip DJD, mild left hip DJD. 6. Moderate to severe DJD in the thoracic and lumbar spine as described above. 7. L5-S1 severe degenerative facet hypertrophy and distraction causes a grade 1 anterior spondylolisthesis and severe canal stenosis. CT abdomen pelvis done 08/2014 showin. No definite cause for vomiting noted. 2. Kidneys show perinephric stranding suggesting chronic renal disease. 3. 2 cm simple cyst seen on the lateral margin of the left kidney. 4. Minimal sigmoid diverticulosis noted. 5. Degenerative disk disease noted in the thoracic and lumbar spine. As in History of Present Illness. All the pertinent systems were reviewed and were otherwis e negative. Current Outpatient Prescriptions Medication Sig Dispense Refill albuterol (PROVENTIL HFA;VENTOLIN HFA) 108 (90 BASE) MCG/ACT inhaler Inhale 2 puffs int o the lungs every 6 (six) hours as needed. citalopram (CELEXA) 40 MG tablet Take 40 mg by mouth daily. fish oil omega-3 fatty acids 1000 MG capsule Take 1 g by mouth daily. fluticasone-salmeterol (ADVAIR) 250-50 MCG/DOSE AEPB Inhale 1 puff into the lungs 2 (tw o) times daily. furosemide (LASIX) 80 MG tablet lovastatin (MEVACOR) 40 MG tablet Take 40 mg by mouth nightly. metoclopramide (REGLAN) 10 MG tablet plaese do take within 20 min meals BF, lunch dinne r 60 tablet 0 ondansetron (ZOFRAN) 4 MG tablet Take 4 mg by mouth 3 (three) times daily as needed for Nausea. potassium chloride (K-TAB) 10 MEQ CR tablet quinapril (ACCUPRIL) 5 MG tablet Take 5 mg by mouth daily. spironolactone (ALDACTONE) 100 MG tablet Take 1 tablet by mouth daily. 30 tablet 0 trazodone (DESYREL) 100 MG tablet Take 100 mg by mouth nightly. Turmeric Curcumin 500 MG CAPS Take 500 mg by mouth daily. allopurinol (ZYLOPRIM) 300 MG tablet aspirin 325 MG tablet Take 325 mg by mouth daily with breakfast. Cholecalciferol 2000 UNITS CAPS Take 2,000 Units by mouth daily. Cinnamon 500 MG capsule Take 500 mg by mouth 2 (two) times daily. Oxygen (outpatient therapy) Inhale 2 L into the lungs continuous. promethazine (PHENERGAN) 25 MG tablet Take 25 mg by mouth every 6 (six) hours as needed for Nausea. No current facility-administered medications for this visit. Physical Exam: BP 100/58 (BP Location: Right upper arm, Patient Position: Sitting) | Pulse 78 | Ht 1.524 m (5') | Wt 110.3 kg (243 lb 1.6 oz) | SpO2 96% | BMI 47.48 kg/m General appearance: Pleasant, not in acute distress. O2 on per NC 2L. Uses W/C now. Neck: Supple without tracheal deviation or jugular venous distension. Head and ENT: Head is atraumatic. The oropharynx is without erythema or thrush. Eyes: Anicteric. The extraocular muscle movements are normal. Lungs: Clear to auscultation bilaterally. There are no wheezes. Heart: Regular rate and rhythm without any rub, gallop. no murmur. Abdominal exam: Obese. Soft and nontender with normal bowel sounds. Musculoskeletal: No costovertebral angle tenderness bilaterally. Extremities: Warm to touch with trace leg edema. There is no cyanosis. Skin: There are no rashes, petechiae, or ecchymosis. Neurological: Awake, alert, and oriented to time, place, and person. Normal gross motor po wer. There is no asterixis. Psychiatric: The patient s behavior is normal. Judgment and thought content are normal. Lab Results Component Value Date BUN 17 02/16/2019 CREATININE 0.95 02/16/2019 EGFR 59 (A) 02/16/2019 NA 141 02/16/2019 K 4.5 02/16/2019 CL 100 02/16/2019 CO2 28 02/16/2019 CA 9.5 02/16/2019 PHOS 3.4 02/16/2019 MG 2.1 02/16/2019 ALB 4.3 02/16/2019 HGB 14.7 02/16/2019 URICACID 2.6 02/16/2019 WBC 6.7 02/16/2019 HCT 44.5 02/16/2019 LABPROT 127.7 02/16/2019 [id number] 08/19/2017 Assessment: Ms. Davila is a 63 y.o. female patient with stage IIIB CKD on a background of longstanding diabetes, hypertension, morbid obesity. 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 RENAL FUNCTION: Relatively stable BLOOD PRESSURE: Reports controlled - no log today BLOOD SUGAR: Reportedly controlled ELECTROLYTES: Normal ANEMIA: None VITAMIN D: Deficiency has resolved with treatment PARATHYROID HORMONE: Mild URIC ACID: Improved with treatment PROTEINURIA: Minimal URINALYSIS: No UTI or hematuria VOLUME STATUS: Euvolumic Discussions/Recommendations: I discussed today with Ms.. Davila the meaning of her CKD and the interaction of that with her diabetes & hypertension. I stressed the importance of keeping her BG & BP controlled an d avoiding getting dehydrated if we are to have a chance at helping preserve her renal funct ion. she showed good understanding. I gave her instructions on how to chart her blood pres sure in the appropriate manner at home. she is to call us if they fall outside of the optim al provided range. she will bring her sphygmomanometer for validation once a year. she elisha l strictly abide by a low salt diet and will avoid all kinds of NSAIDs for analgesia. PLAN: No medication changes today. I recommend she avoid all NSAIDs including celebrex and meloxicam. BP Charting: she will bring me back her home BP charts in 2 weeks. At that time, I will decide whether any changes to her vasoactive regimen are warranted. Follow up labs include: RFP, Magnesium, CBC, uric acid, Urine total tzuwqad-yw-ryxbwwdkl e ratio and other labs as indicated. I advised her to exercise regularly but safely & to try to lose weight methodically; She voiced good understanding. Discussed to avoid alcohol and caffeine. She will continue to F/U with your office regularly. She will have labs done before she comes back in [address] Rojo for the opportunity to follow up with this patient and be part of the care team. Please do not hesitate to call me at any time with questions or concerns. Truly yours, Kip Baez DOOR TO DOOR FUNDRAISING COLLECTOR [facility] Nephrologyin this encounter Plan of Treatment + +--------+ + + | Name | Priori | Associated Diagnoses | Order Schedule | | | ty | | | + +--------+ + + | Renal function panel | Routin | CKD (chronic | Expected: | | | e | kidney disease), | 08/22/2019, Expires: | | | | stage III Essential | 11/21/2019 | | | | hypertension, | | | | | benign | | | | | Hyperuricemia | | + +--------+ + + | CBC W/Auto Diff (Reflex to | Routin | CKD (chronic | Expected: | | Manual) | e | kidney disease), | 08/22/2019, Expires: | | | | stage III Essential | 11/21/2019 | | | | hypertension, | | | | | benign | | | | | Hyperuricemia | | + +--------+ + + | Magnesium | Routin | CKD (chronic | Expected: | | | e | kidney disease), | 08/22/2019, Expires: | | | | stage III Essential | 11/21/2019 | | | | hypertension, | | | | | benign | | | | | Hyperuricemia | | + +--------+ + + | Uric acid | Routin | CKD (chronic | Expected: | | | e | kidney disease), | 08/22/2019, Expires: | | | | stage III Essential | 11/21/2019 | | | | hypertension, | | | | | benign | | | | | Hyperuricemia | | + +--------+ + + | Protein / creatinine ratio, urine | Routin | CKD (chronic | Expected: | | | e | kidney disease), | 08/22/2019, Expires: | | | | stage III Essential | 11/21/2019 | | | | hypertension, | | | | | benign | | | | | Hyperuricemia | | + +--------+ + + as of this encounter Visit Diagnoses + + | Diagnosis | + + | CKD (chronic kidney disease), stage III - Primary | + + | Essential hypertension, benign | + + | Hyperuricemia | + + | Other abnormal blood chemistry | + +"
--- OUTSIDE RECORDS SUMMARY | ~2019-02-26 | XMS | Encounter Summary ---
Demographics + + + | Address | [address] | | | [place] [address] | + + + | Home Phone | | + + + | Preferred Language | Unknown | + + + | Marital Status | Single | + + + | Episcopal Affiliation | Unknown | + + + | Race | Unknown | + + + | Ethnic Group | Unknown | + + + Author + + + | Author | [facility] | + + + | Organization | [facility] | + + + | Address [...] [place] | | | | | [address] | | + + + + + | FrankElijah | ECON | Unknown | | + + + + + Care Team Providers + +------+ + | Care Mine Safety Director Name | Role | Phone | + +------+ + | Vasu Rojo DO | PCP | | + +------+ + Encounter Details +--------+---------+ + + + | Date | Type | Department | Care Team | Description | +--------+---------+ + + + | 02/22/ | Office | [facility] | JethrojessicaKip, | CKD (chronic kidney | | 2019 | Visit | [place] [address] | MATERIAL SPECIALIST Jairon GIRALDO | disease), stage III | | | | [address] | [address] | (Primary Dx); | | | | [place] [address] | [place] [address] | Essential | | | | [phone] | [phone] | hypertension, | | | | | [...] 02/16/2019 HCT 44.5 02/16/2019 LABPROT 127.7 02/16/2019 [id number] 08/19/2017 Assessment: Ms. Davila is a [...] RFP, Magnesium, CBC, uric acid, Urine total ztwblvt-ih-xpanafpdy e ratio and other labs as indicated. [...] questions or concerns. Truly yours, Kip Baez MATERIAL SPECIALIST [facility] Nephrologyin this encounter Plan of Treatment [...]
--- OUTSIDE RECORDS SUMMARY | ~2019-02-26 | XMS | Encounter Summary ---
Demographics + + + | Address | [address] | | | [place] [address] | + + + | Home Phone | | + + + | Preferred Language | Unknown | + + + | Marital Status | Single | + + + | Religion Affiliation | Unknown | + + + | Race | Unknown | + + + | Ethnic Group | Unknown | + + + Author + + + | Author | [facility] | + + + | Organization | [facility] | + + + | Address [...] [place] | | | | | [address] | | + + + + + | FrankElijah | ECON | Unknown | | + + + + + Care Team Providers + +------+ + | Care Imaging Engineer Name | Role | Phone | + +------+ + | Vasu Rojo DO | PCP | | + +------+ + Reason for Visit + + + | Reason | Comments | + + + | Labs Only | 02/16/19 | + + + Encounter Details +--------+ + + + + | Date | Type | Department | Care Team | Description | +--------+ + + + + | 02/17/ | Documentati | [facility] | César, | Labs Only (02/16/19) | | 2019 | on Only | [place] [address] | | | | | [address] | | | | | | [place] [address] | | | | | | [phone] | | | +--------+ + + + + Social [...] section. | + +--------+ + + + in this encounter Results Uric acid (02/16/2019 10:45 AM) + +-------+ + + | Component | Value | Ref Range | Performed At | + +-------+ + + | URIC ACID | 2.6 | 2.3 - 6.6 | | + +-------+ + + + + | Specimen | + + | Blood | + + in this encounter Visit Diagnoses Not on filein this encounter"
--- OUTSIDE RECORDS SUMMARY | ~2019-02-26 | XMS ---
Demographics + + + | Address | [address] | | | [place] [address] | + + + | Preferred Language | Unknown | + + + | Marital Status | Unknown | + + + | Judaism Affiliation | Unknown | + + + | Race | Unknown | + + + | Ethnic Group | Unknown | + + + Author + + + | Author | [facility] | + + + | Organization | [facility] | + + + | Address | [address] | | | [place] [address] | + + + | Phone | | + + + Care Team Providers + + + + | Care Etcher Enameling Name | Role | Phone | + + + + Unavailable | Unavailable | + + + + PROBLEMS + + + + + + + + | Type | Condition | ICD9-CM | UCH17-ON | Onset | Condition | SNOMED | | | | Code | Code | Dates | Status | Code | + + + + + + + + | Problem | Edema | 782.3 | | | Active | 00491198 | + + + + + + + + | Problem | Diabetes | 250.00 | | | Active | [id number] | + + + + + + + + | Problem | Peripheral | 356.9 | | | Active | [id number] | | | | | | | | | | | neuropathy | | | | | | + + + + + + + + | Problem | Benign | I10 | | | Active | 35130149 | | | essential | | | | | | | | HTN | | | | | | + + + + + + + + | Problem | 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 | | | Active | [id number] | | | sis due to | | | | | | | | secondary | | | | | | | | diabetes | | | | | | + + + + + + + + | 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 | [id number] | | | diabetes | | | | | | | | mellitus | | | | | | | | without | | | | | | | | complicati | | | | | | | | ons | | | | | | + + + + + + + + | Problem | Vomiting | 787.03 | | | Active | 394159264 | + + + + + + + + | Problem | Diabetes | E11.8 | | | Active | [id number] | | | mellitus | | | | | | | | type 2 | | | | | | | | with | | | | | | | | complicati | | | | | | | | ons | | | | | | + + + + + + + + | Problem | Hyperlipid | | E78.5 | | Active | 56430909 | | | emia | | | | | | + + + + + + + + | Assessment | Type 2 | | E11.9 | 09 April, | Active | [id number] | | | diabetes | | | 2016 | | | | | mellitus | | | | | | | | without | | | | | | | | complicati | | | | | | | | ons | | | | | | + + + + + + + + | Problem | Hyperlipid | 272.4 | | | Active | 59485140 | | | emia | | | | | | + + + + + + + + | Assessment | Nagana | B56.9 | | 09 April, | Active | [id number] | | | | | | 2016 | | | + + + + + + + + | Problem | Morbid | 278.01 | | | Active | [id number] | | | obesity | | | | | | + + + + + + + + | Problem | COPD | 496 | | | Active | 56774408 | | | [Chronic | | | | | | | | obstructiv | | | | | | | | e | | | | | | | | pulmonary | | | | | | | | disease] | | | | | | + + + + + + + + | Problem | Hypertensi | 401.9 | | | Active | 84456180 | | | on | | | | | | + + + + + + + + | Problem | DEPEND-SUP | V46.2 | | | Active | | | | PLEMENT | | | | | | | | OXYGEN | | | | | | + + + + + + + + | Problem | Diabetes | 250.80 | | | Active | 81758146 | | | mellitus | | | [...] not | | | | | | + + + + + + + + | Problem | LONG-TERM | V58.67 | | | Active | [id number] | | | USE OF | | | | | | | | INSULIN | | | | | | + + + + + + + + ALLERGIES + + + + +---------+ | Substance | Reaction | Event Type | Date | Status | + + + + +---------+ | Saida | Unknown | Non Drug | March, | Unknown | | | | Allergy | | | + + + + +---------+ SOCIAL HISTORY No smoking Hx information available PLAN OF CARE VITAL SIGNS + + + + | Height | 61 in | 2017-04-09 | + + + + | Weight | 268.0 lbs | 2017-04-09 | + + + + | BMI | 50.63 kg/m2 | 2017-04-09 | + + + + | Temperature | 97.6 degrees Fahrenheit | 2017-04-09 | + + + + | Heart Rate | 101 /min | 2017-04-09 | + + + + | Blood pressure systolic | 140 mm Hg | 2017-04-09 | + + + + | Blood pressure diastolic | 64 mm Hg | 2017-04-09 | + + + + MEDICATIONS + [...] + + + +--------+ | Allopuri | | TAKE 1 | | | [...] Orally q | 1 tablet | | 19 March, | 14 March, | 30 | Active | | zine HCl | 6hr prn | as | | 2017 | 2018 | day(s) | | | 25 MG | | needed | | | | | | + + + + + + + +--------+ | Trazodon | Orally | 1 tablet | 24h | | | 90 days | Active | | e HCl | Once a | at | | | | | | | 100 mg | day | bedtime | | | | | | + + + + + + + +--------+ | Emiliafran 4 | Orally q | 1 | | 09 April, | | 30 | Active | | MG | 6hr | tablets | | 2016 | | day(s) | | | | prn | | | | | | | + + + + + + + +--------+ RESULTS No Results PROCEDURES + + + + + | Procedure | Date Ordered | Related Diagnosis | Body Site | + + + + + | Office Visit, Est | April 09, 2017 | | | | Pt., Level 3 | | | | + + + + + IMMUNIZATIONS No Known Immunizations"
--- OUTSIDE RECORDS SUMMARY | ~2019-02-26 | XMS | Encounter Summary ---
Demographics + + + | Address | [address] | | | [place] [address] | + + + | Home Phone | | + + + | Preferred Language | Unknown | + + + | Marital Status | Single | + + + | Methodist Affiliation | Unknown | + + + | Race | Unknown | + + + | Ethnic Group | Unknown | + + + Author + + + | Author | [facility] | + + + | Organization | [facility] | + + + | Address [...] [place] | | | | | [address] | | + + + + + | FrankElijah | ECON | Unknown | | + + + + + Care Team Providers + +------+ + | Care Architectural Wood Model Maker Name | Role | Phone | + [...] | | 2019 | on Only | [place] [address] | [address] | | | | | [address] | | | | | | [place] [address] | | | | | | [phone] | | | +--------+ + + + [...]
--- OUTSIDE RECORDS SUMMARY | ~2019-02-26 | XMS ---
Demographics + + + | Address | [address] | | | [place] [address] | + + + | Preferred Language | Unknown | + + + | Marital Status | Unknown | + + + | Caodaism Affiliation | Unknown | + + + | Race | Unknown | + + + | Ethnic Group | Unknown | + + + Author + + + | Author | [facility] | + + + | Organization | [facility] | + + + | Address | [address] | | | [place] [address] | + + + | Phone | | + + + Care Team Providers + + + + | Care Film Drying Machine Operator Name | Role | Phone | + + + + Unavailable | Unavailable | + + + + PROBLEMS +---------+ + + +--------+ + + | Type | Condition | ICD9-CM | [id number] | Onset | Condition | SNOMED | | | | Code | Code | Dates | Status | Code | +---------+ + + +--------+ + + | Problem | Edema | 782.3 | | | Active | [id number] | +---------+ + + +--------+ + + | Problem | Diabetes | 250.00 | | | Active | 572621107 | +---------+ + + +--------+ + + | Problem | Peripheral | 356.9 | | | Active | [id number] | | | | | | | | | | | neuropathy | | | | | | +---------+ + + +--------+ + + | Problem | Benign | I10 | | | Active | 60926444 | | | essential | | | | | | | | HTN | | | | | | +---------+ + + +--------+ + + | Problem | 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 | | | Active | [phone] | | | sis due to | | | | | | | | secondary | | | | | | | | diabetes | | | | | | +---------+ + + +--------+ + + | 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 | 415100732 | | | diabetes | | | | | | | | mellitus | | | | | | | | without | | | | | | | | complicati | | | | | | | | ons | | | | | | +---------+ + + +--------+ + + | Problem | Vomiting | 787.03 | | | Active | [id number] | +---------+ + + +--------+ + + | Problem | Diabetes | E11.8 | | | Active | 105114992 | | | mellitus | | | [...] | | E78.5 | | Active | 91369836 | | | emia | | | | | | +---------+ + + +--------+ + + | Problem | Hyperlipid | 272.4 | | | Active | 20740633 | | | emia | | | | | | +---------+ + + +--------+ + + | Problem | Morbid | 278.01 | | | Active | 530680280 | | | obesity | | | | | | +---------+ + + +--------+ + + | Problem | COPD | 496 | | | Active | 63709662 | | | [Chronic | | | | | | | | obstructiv | | | | | | | | e | | | | | | | | pulmonary | | | | | | | | disease] | | | | | | +---------+ + + +--------+ + + | Problem | Hypertensi | 401.9 | | | Active | 77216079 | | | on | | | | | | +---------+ + + +--------+ + + | Problem | DEPEND-SUP | V46.2 | | | Active | | | | PLEMENT | | | | | | | | OXYGEN | | | | | | +---------+ + + +--------+ + + | Problem | Diabetes | 250.80 | | | Active | 08245350 | | | mellitus | | | [...] | V58.67 | | | Active | [phone] | | | USE OF | | | | | | | | INSULIN | | | | | | +---------+ + + +--------+ + + ALLERGIES Unknown Allergies SOCIAL HISTORY No smoking Hx information available PLAN OF CARE VITAL SIGNS MEDICATIONS + + + + + + + +--------+ | Medicati | Instruct | Dosage | Frequenc | Start | End Date | Duration | Status | | on | ions | | y | Date | | | | + + + + + + + +--------+ | Spironol | Orally | 1 tablet | 24h | Apr, | 29 May, | 30 | Active | | actone | Once a | | | 2017 | 2017 | day(s) | | | 50 MG [...]
[~2019-02-26 13:45] MED LIST: ACCUPRIL5 MG PO; ADVAIR 250-501 EACH INH; ALLOPURINOL100 MG PO; ALLOPURINOL300 MG PO; ASPIR-TRIN325 MG PO; CITALOPRAM HBR40 MG PO; CLARITIN10 M2 PO; FISH OIL 1,0001 EAC3 PO; FISH OIL300 MG PO; GLIPIZIDE XL10 MG PO; GLIPIZIDE10 MG PO; LASIX80 MG PO; LORAZEPAM0.5 MG PO; LORAZEPAM1 MG PO; LOVASTATIN40 MG PO; LYSINE1000 MG PO; METOCLOPRAMIDE10 MG PO; OMEPRAZOLE20 MG PO; OXYGEN 2L/NC; POTASSIUM CHLO10 ME1 PO; POTASSIUM CHLO10 MEQ PO; PRILOSEC20 MG PO; PROMETHAZINE HC25 M1 PO; QUINAPRIL HCL5 MG PO; REGLAN10 MG PO; SPIRIVA18 MCG INH; SPIRONOLACTONE100 MG PO; TRAMADOL HCL50 MG PO; TRAZODONE HCL100 MG PO; VENTOLIN HFA18 GM INH; VIT D 3; VITAMIN D32000 UNI1 PO; ZOFRAN ODT4 MG SL; ZOFRAN ODT8 MG PO
== END 2019-02-26 15:02 | disposition home or self-care (01) ==
LOC: ED 13:45
DX: T20.04XA Burn of unspecified degree of nose (septum), initial encounter (principal); T20.00XA Burn of unspecified degree of head, face, and neck, unspecified site, initial encounter; T31.0 Burns involving less than 10% of body surface; X08.8XXA Exposure to other specified smoke, fire and flames, initial encounter; I11.0 Hypertensive heart disease with heart failure; I50.9 Heart failure, unspecified; J44.9 Chronic obstructive pulmonary disease, unspecified; E11.9 Type 2 diabetes mellitus without complications; F32.9 Major depressive disorder, single episode, unspecified; Z87.891 Personal history of nicotine dependence; Z79.899 Other long term (current) drug therapy; Z79.82 Long term (current) use of aspirin
CPT/HCPCS: 99283

== ENCOUNTER 2021-10-29 05:55 | Day surgery (SDC) | payer MEDICARE ==
[~2021-10-29] VITALS: Ht 152.4 cm; Wt 90.9 kg
[~2021-10-29 05:55] MED LIST changes: +CELEBREX100 MG PO; +CINNAMON500 MG PO; +DULOXETINE HCL40 MG PO; +HYDROCODON-ACE1 EA13 PO; +TURMERIC500 M2 PO
--- NOTE | 2021-10-29 06:21 | NUR ---
STATES LEFT GLASSES DENTURES AND AIDES AT HOME
--- NOTE | 2021-10-29 08:02 | NUR ---
REDISH PURPLE EXCORIATED AREA NOTED LOWER BUTTOCKS, PERINEAL AREA, PT WAS WAS ASKED IF IF SHE WAS WAS AWARE OF THIS AREA AND SHE STATED THAT SHE WAS UNAWARE OF ANY AREAS OF DISCOLORATION, STATED AREA SORE AT TIMES AND SHE PUTS VASOLINE THERE
--- NOTE | 2021-10-29 08:54 | NUR ---
0800 ASSISTED TO BSC HAD YELLOWISH LIQUID STOOL.
--- NOTE | 2021-10-29 09:03 | NUR ---
10/29/21 0903 Mary Anne Donovan 0854-PATIENT ARRIVED TO PACU ON 4L NC RR EVEN NONAROUSABLE LAYING LEFT LATERAL. ABDOMEN SOFT. IVF INFUSING. SR 0901-PATIENT AROUSING OPENING EYES FOLLOWING COMMANDS. 4L NC RR EVEN 97% PATIENT USES 2L NC AT HOME CONTINUOUSLY. HOB ELEVATED ABDOMEN SOFT ENCOURAGED TO PASS GAS. PATIENT DOZES BACK TO SLEEP.
--- NOTE | 2021-10-29 10:25 | NUR ---
1000: PT RETURNS TO UNIT FROM PACU VIA STRETCHER FOR EXTENDED RECOVERY. DROWSY ON ARRIVAL BUT RESPONDS TO VERBAL STIMULUS AND ANSWERS QUESTIONS APPROPRIATELY. VSS, RESP EVEN AND UNLABORED. O2 SAT >94% ON 3L VIA NC. BP ELEVATED, CRISTY KINCAID AWARE. NO NEW ORDERS RECEIVED AT THIS TIME. PT WITH NAUSEA AND ABDOMINAL PAIN. ENCD TO CONT TO PASS GAS TO INCREASE COMFORT. DAUGHTER ARRIVES AT THE BEDSIDE. NO NEEDS AT THIS TIME. CALL LIGHT WITHIN REACH
--- NOTE | 2021-10-29 10:57 | NUR ---
WAS GIVEN DC INSTRUCTIONS TO KG AND TO PT. STATES THEY UNDERSTAND NO QUESTIONS.
--- NOTE | 2021-10-29 12:44 | OR ---
[facility] [address], [place] [address] Signed DATE OF OPERATION: 10/29/2021 SURGEON: Kiki Colby MD PREOPERATIVE DIAGNOSES: 1. Personal history of colonic polyps in 2007 at [facility]. 2. Personal history of colonic polyps in 2016 with internal hemorrhoids and diverticulosis with Dr. Dr. De Leon. 3. Father with colon cancer at age 65. POSTOPERATIVE DIAGNOSES: 1. Moderate pandiverticulosis with left greater than the right. 2. Minimal to moderate internal hemorrhoids. 3. 6 mm polyp at 60 cm. 4. 8 mm polyp in mid/distal right colon. 5. 10 mm polyps x2 in cecum. 6. 8, 10 and 4 mm polyps in distal hepatic flexure. 7. 4 mm polyp at 80 cm. 8. 4 mm polyp at 75 cm. 9. 3 mm polyp at 10 cm. PROCEDURE: Colonoscopy with snare polypectomy and hot biopsies. ESTIMATED BLOOD LOSS: None. INDICATIONS: Gabriel is a 66-year-old obese diabetic female with significant past medical history including her COPD. She was asked to see me for a followup colonoscopy. She had a colonoscopy in 2007 at [facility]. She apparently had several colonic polyps removed at that time. She then underwent repeat colonoscopy in [address] De Leon and had more than 20 small polyps removed all under 1 cm. Several of these were tubular adenomas. She was known to have diverticulosis, internal hemorrhoids at the same time. She had some bleeding and had to go back for repeat colonoscopy next day with several clips placed and use of the argon beam process controls technician. In addition, we know her father had colon cancer at age 65. Apparently, he was treated and did quite well. Currently, Gabriel has no lower GI complaints. In the office, I gave her a pamphlet on colonoscopy as well as colon polyps and cancer. We reviewed those together in detail. She understands there is risk including, but not limited to gas bloating, Electronically Signed By: KIKI COLBY MD 10/29/21 1244 PATIENT NAME: GABRIEL HOUSTON OPERATIVE REPORT DATE OF : 53 REPORT #: [id number] PHYSICIAN: KIKI COLBY MD PCP: VASU JENNINGS DO REPORT IS CONFIDENTIAL AND NOT TO BE RELEASED WITHOUT AUTHORIZATION [facility] [address] [place] [phone] Signed crampy abdominal pain, bleeding, perforation requiring surgery, and missed diagnosis. Also because of her advanced medical issues along with her need for chronic opioids and marijuana, we asked that an anesthesia provider help us with increased monitoring and sedation with propofol. She had expressed understanding and wished to proceed. PROCEDURE NOTE: Gabriel was taken into our endoscopy suite and placed in the left lateral decubitus position. She was given monitored anesthesia care with propofol per our nurse ui developer. Before this, we noticed that she had chronic venous disease around her both buttocks. 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 She is not able to see that area very well, we went and took a picture of that for her. A digital rectal exam was performed and this was unremarkable. The adult colonoscope was then introduced and advanced under direct visualization of the camera up to the cecum itself. We could easily identify the appendiceal orifice. Her prep was quite excellent. We took pictures throughout for photodocumentation. We used a combination of the snare and hot biopsy forceps to remove all the polyps as described above. We did see a few diverticula in the cecum right colon. Of course, most of her diverticula are in the left and sigmoid colon. They were moderate in size, moderate in number, and scattered about. Once in the rectum, the scope had been retroflexed and she does have minimal to moderate internal hemorrhoid columns. We also noted a small to moderate sized lipoma in the hepatic flexure. A picture was taken of this as well. After this, the gas had been suctioned out and the colonoscope removed. Gabriel tolerated the procedure quite well. RECOMMENDATIONS: I will see Gabriel back in my office in 7 to 14 days to review her results. She might consider a shorter interval followup colonoscopy somewhere less in 5 years. Kiki Colby MD ALB/MODL /[id number] cc: MD Vasu Herrera DO Electronically Signed By: KIKI COLBY MD 10/29/21 1244 PATIENT NAME: GABRIEL HOUSTON OPERATIVE REPORT DATE OF : 53 REPORT #: [id number] PHYSICIAN: KIKI COLBY MD PCP: VASU JENNINGS DO REPORT IS CONFIDENTIAL AND NOT TO BE RELEASED WITHOUT AUTHORIZATION [address] [address] Signed Copies: KIKI COLBY MD, ARIAN DO ~ Electronically Signed By: KIKI COLBY MD 10/29/21 1244 PATIENT NAME: GABRIEL HOUSTON Fantasma OPERATIVE REPORT DATE OF : 53 REPORT #: [id number] PHYSICIAN: KIKI COLBY MD PCP: VASU JENNINGS DO REPORT IS CONFIDENTIAL AND NOT TO BE RELEASED WITHOUT AUTHORIZATION
--- NOTE | 2021-10-30 23:11 | PATH ---
[facility] [address], [place] [address] Signed SPECIMEN(S): A COLON POLYP AT 60 CM SPECIMEN(S): B MID ASCENDING/RIGHT COLON POLYP SPECIMEN(S): C CECAL POLYP SPECIMEN(S): D CECAL POLYP SPECIMEN(S): E DISTAL HEPATIC FLEXURE POLYP SPECIMEN(S): F POLYP AT 80 CM SPECIMEN(S): G POLYP AT 75 CM SPECIMEN(S): H RECTAL POLYP AT 10 CM SPECIMEN SOURCE: A. COLON POLYP AT 60 CM B. MID ASCENDING/RIGHT COLON POLYP C. CECAL POLYP D. CECAL POLYP E. DISTAL HEPATIC FLEXURE POLYP F. POLYP AT 80 CM G. POLYP AT 75 CM H. RECTAL POLYP AT 10 CM CLINICAL HISTORY: Colonoscopy. History of colon CA family, personal history of colon polyps. MICROSCOPIC DESCRIPTION: Histologic sections of all submitted blocks are examined by light microscopy. These findings, together with the gross examination, support the pathologic diagnosis. FINAL PATHOLOGIC DIAGNOSIS: A. Colon, 60 cm, polypectomy: - Tubular adenoma. - There is no evidence of high-grade dysplasia or malignancy. B. Colon, mid ascending/right, polypectomy: - Hyperplastic polyp. - There is no evidence of dysplasia or malignancy. C. Colon, cecum, polypectomy: - Multiple fragments of tubular adenoma. - There is no evidence of high-grade dysplasia or malignancy. D. Colon, cecum, polypectomy: - Multiple fragments of tubular adenoma. - There is no evidence of high-grade dysplasia or malignancy. E. Colon, distal hepatic flexure, polypectomy: - Multiple fragments of tubular adenoma. PATIENT NAME: GABRIEL HOUSTON PATHOLOGY DATE OF : 53 REPORT #: [id number] PHYSICIAN: RACHEL LANTIGUA PCP: YOGESH JENNINGS DO REPORT IS CONFIDENTIAL AND NOT TO BE RELEASED WITHOUT AUTHORIZATION [facility] [address], [place] [address] Signed - There is no evidence of high-grade dysplasia or malignancy. F. Colon, 80 cm, polypectomy: - Tubular adenoma, one fragment. - An additional fragment of colonic epithelium is within normal limits. - There is no evidence of high-grade dysplasia or malignancy. G. Colon, 75 cm, polypectomy: - Tubular adenoma. - There is no evidence of high-grade dysplasia or malignancy. H. Rectum, 10 cm, polypectomy: - Hyperplastic polyp. - There is no evidence of dysplasia or malignancy. TWK:cml:C2NR GROSS DESCRIPTION: Eight specimens are received in eight containers, labeled "LS." A. The specimen, labeled "LS, 1," and designated on the requisition "colon polyp at 60 cm," is received in formalin and consists of one davey soft tissue fragment with possible vegetative matter that measures 0.3 cm in greatest dimension. The specimen is entirely submitted in cassette (A1). B. The specimen, labeled "LS, 2," and designated on the requisition "mid ascending/right colon," is received in formalin and consists of one davey soft tissue fragment that measures 0.3 cm in greatest dimension. The specimen is entirely submitted in cassette (B1). C. The specimen, labeled "LS, 3," and designated on the requisition "cecal polyp," is received in formalin and consists of four davey soft tissue fragments that measure 0.2-0.3 cm in greatest dimension. The specimen is entirely submitted in cassette (C1). D. The specimen, labeled "LS, 4," and designated on the requisition "cecal polyp," is received in formalin and consists of four davey soft tissue fragments that measure 0.2-0.3 cm in greatest dimension. The specimen is entirely submitted in cassette (D1). E. The specimen, labeled "LS, 5," and designated on the requisition "distal hepatic flexure polyp," is received in formalin and consists of multiple davey soft tissue fragments that measure 1.5 x 0.6 x 0.2 cm in greatest dimension. The specimen is entirely submitted in cassette (E1). F. The specimen, labeled "LS, 6," and designated on the requisition "polyp at 80 cm," is received in formalin and consists of two davey soft tissue fragments that measure 0.2-0.3 cm in greatest PATIENT NAME: GABRIEL HOUSTON PATHOLOGY DATE OF : 53 REPORT #: [id number] PHYSICIAN: RACHEL LANTIGUA PCP: YOGESH JENNINGS DO REPORT IS CONFIDENTIAL AND NOT TO BE RELEASED WITHOUT AUTHORIZATION [facility] [address], [place] [address] Signed dimension. The specimen is entirely submitted in cassette (F1). G. The specimen, labeled "LS, 7," and designated on the requisition "polyp at 75 cm," is received in formalin and consists of one davey soft tissue fragment that measures 0.3 cm in greatest dimension. The specimen is entirely submitted in cassette (G1). H. The specimen, labeled "LS, 8," and designated on the requisition "rectal polyp at 10 cm," is received in formalin and consists of one davey soft tissue fragment that measures 0.3 cm in greatest dimension. The specimen is entirely submitted in cassette (H1). AT (under the direct supervision of a pathologist) The Gross Description was prepared using a voice recognition system. The report was reviewed for accuracy; however, sound-alike word errors, addition and/or deletions may occur. If there is any question about this report, please contact Client Services. PERFORMING LABORATORY: The technical component [place] [address] (Assisted Living Nursing Director: Rebecca Llanos MD; CLIA# [id number]). Professional [place] [address] (CLIA# [id number]). Diagnostician: Chele Roberson MD Pathologist Electronically Signed 10/30/2021 Copies: ~ PATIENT NAME: GABRIEL HOUSTON PATHOLOGY DATE OF : 53 REPORT #: [id number] PHYSICIAN: RACHEL LANTIGUA PCP: YOGESH JENNINGS DO REPORT IS CONFIDENTIAL AND NOT TO BE RELEASED WITHOUT AUTHORIZATION
== END 2021-10-29 10:40 | disposition home or self-care (01) ==
LOC: OPS 05:55 → DS 05:55 → OPS 07:30 → DS 07:30 → OPS 10:40
PROVIDERS: ATTEND Colon & Rectal Surgery
PROC: 0DBE8ZZ Excision of Large Intestine, Via Natural or Artificial Opening Endoscopic (ICD-10-PCS; 2021-10-29)
PROC: 0DBE8ZZ Excision of Large Intestine, Via Natural or Artificial Opening Endoscopic (ICD-10-PCS; principal; 2021-10-29 07:30)
DX: D12.0 Benign neoplasm of cecum (principal); D12.3 Benign neoplasm of transverse colon; K63.5 Polyp of colon; K57.30 Diverticulosis of large intestine without perforation or abscess without bleeding; K64.8 Other hemorrhoids; D17.79 Benign lipomatous neoplasm of other sites; E11.22 Type 2 diabetes mellitus with diabetic chronic kidney disease; I13.0 Hypertensive heart and chronic kidney disease with heart failure and stage 1 through stage 4 chronic kidney disease, or unspecified chronic kidney disease; N18.30 Chronic kidney disease, stage 3 unspecified; I50.9 Heart failure, unspecified; E66.01 Morbid (severe) obesity due to excess calories; G47.33 Obstructive sleep apnea (adult) (pediatric); I49.8 Other specified cardiac arrhythmias; J43.9 Emphysema, unspecified; M19.90 Unspecified osteoarthritis, unspecified site; E78.00 Pure hypercholesterolemia, unspecified; Z86.010 Personal history of colon polyps; Z80.0 Family history of malignant neoplasm of digestive organs; Z87.891 Personal history of nicotine dependence; Z68.42 Body mass index [BMI] 45.0-49.9, adult; Z99.81 Dependence on supplemental oxygen; Z86.711 Personal history of pulmonary embolism
CPT/HCPCS: J2001; J2405; J2704; J7121

== ENCOUNTER 2022-10-26 13:08 | Emergency (ER) | payer MEDICARE ==
[~2022-10-26] VITALS: Ht 152.4 cm; Wt 90.9 kg
--- OUTSIDE RECORDS SUMMARY | 2022-10-26 13:10 | XMS ---
PreManage Notification: GABRIEL HOUSTON Security Outside Sales Associate Events No recent Security Events currently on file CRITERIA MET - PDMP CARE PROVIDERS YOGESH JENNINGS Internal Medicine 02/27/2019-Current PHONE: Unknown Care Guidelines exist for the following facilities: [facility] ( 05/29/2019 ) Care History Medical/Surgical 02/27/2019 [facility] - Patient is currently established with [facility]. If patient is seen in the ED during business hours. Please contact CHWs at [facility]. Care Recommendation: This patient has had 5 or more Emergency Department visits in the last 12 months.\T\nbsp; Patient requires education on the scope and purpose of the ED as an acute care provider not a Primary Care Provider and should not be utilized for chronic conditions.\T\nbsp; These are guidelines and the provider should exercise clinical judgment when providing care. E.D. VISIT COUNT (12 MO.) 1 [facility] TOTAL 1 NOTE: Visits indicate total known visits. ED/UCC VISIT TRACKING (12 MO.) 10/26/2022 13:09 [facility] [place] TYPE: Emergency COMPLAINT: - SOB, BODY ACHES, COUGH INPATIENT VISIT TRACKING (12 MO.) No inpatient visits to display in this time frame [email or web address]
[2022-10-27] MEDS ORDERED: POTASSIUM CHLOR8 ME1 PO (16:04)
[2022-10-27] MEDS ORDERED: ALLOPURINOL100 MG PO (16:07)
[2022-10-27] MEDS ORDERED: HYDROCODON-ACE1 EA10 PO (16:07)
[2022-10-27] MEDS ORDERED: FUROSEMIDE20 MG PO (16:07)
[2022-10-27] MEDS ORDERED: DULOXETINE HCL20 MG PO (16:08)
[2022-10-27] MEDS ORDERED: FLUTICASONE-SA1 EAC5 INH (16:09)
--- NOTE | 2022-10-28 23:15 | EKG ---
[facility] [address] [place] [address] Signed Undetermined rhythm Rightward axis Borderline ECG When compared with ECG of 22-OCT-2021 16:48, Current undetermined rhythm precludes rhythm comparison, needs review Criteria for Septal infarct are no longer present Confirmed by Yahir Cadena MD () on 10/28/2022 11:14:55 PM Electronically Signed By: YAHIR CADENA MD 10/28/22 2315 PATIENT NAME: GABRIEL HOUSTON Electrocardiogram DATE OF : 53 PHYSICIAN: YAHIR CADENA MD REPORT #: [id number] REPORT IS CONFIDENTIAL AND NOT TO BE RELEASED WITHOUT AUTHORIZATION
== END 2022-10-26 20:30 | disposition home or self-care (01) ==
LOC: ED 13:08
DX: J10.1 Influenza due to other identified influenza virus with other respiratory manifestations (principal); J44.1 Chronic obstructive pulmonary disease with (acute) exacerbation; I11.0 Hypertensive heart disease with heart failure; I50.9 Heart failure, unspecified; M10.9 Gout, unspecified; E11.9 Type 2 diabetes mellitus without complications; I48.91 Unspecified atrial fibrillation; G47.30 Sleep apnea, unspecified; Z20.822 Contact with and (suspected) exposure to COVID-19; Z99.81 Dependence on supplemental oxygen; Z87.891 Personal history of nicotine dependence; Z79.899 Other long term (current) drug therapy
CPT/HCPCS: 36415; 71045; 80053; 83735; 83880; 84484; 85025; 87502; 93005; 93010; 94640; 99285-25; C9803; U0003

== ENCOUNTER 2022-10-27 09:55 | Inpatient (IN) | payer MEDICARE ==
[~2022-10-27] VITALS: Ht 152.4 cm; Wt 91.0 kg
--- OUTSIDE RECORDS SUMMARY | 2022-10-27 09:58 | XMS ---
PreManage Notification: GABRIEL HOUSTON Security Clinical Pathologist Events No recent Security Events currently on file CRITERIA MET - [facility] - [facility] - 2 Visits in 30 Days CARE PROVIDERS YOGESH JENNINGS Internal Medicine 02/27/2019-Current PHONE: Unknown Care Guidelines exist for the following facilities: [facility] ( 05/29/2019 ) Care History Medical/Surgical 02/27/2019 [facility] - Patient is currently established with [facility]. If patient is seen in the ED during business hours. Please contact CHWs at [facility]. Care Recommendation: This patient has had 5 [...] providing care. E.D. VISIT COUNT (12 MO.) 2 [facility] TOTAL 2 NOTE: Visits indicate total known visits. ED/UCC VISIT TRACKING (12 MO.) 10/27/2022 09:56 [facility] TYPE: Emergency COMPLAINT: - CHEST PAIN, DIFFICULTY BREATHING 10/26/2022 13:09 [facility] TYPE: Emergency COMPLAINT: - SOB, BODY ACHES, COUGH INPATIENT VISIT TRACKING (12 MO.) No inpatient visits to display in this time frame [email or web address]
[2022-10-27] MEDS ORDERED: POTASSIUM CHLOR8 ME1 PO (16:04)
[2022-10-27] MEDS ORDERED: FUROSEMIDE20 MG PO (16:07)
[2022-10-27] MEDS ORDERED: ALLOPURINOL100 MG PO (16:07)
[2022-10-27] MEDS ORDERED: HYDROCODON-ACE1 EA10 PO (16:07)
[2022-10-27] MEDS ORDERED: DULOXETINE HCL20 MG PO (16:08)
[2022-10-27] MEDS ORDERED: FLUTICASONE-SA1 EAC5 INH (16:09)
--- NOTE | 2022-10-27 16:40 | NUR ---
ASSUMING CARE OF PT. RECEIVED REPORT FROM EMI AND SKIN ASSESSED DURING REPORT. PT MOVED FROM ED TO ROOM VIA STRETCHER WITH RT PT HAS BIPAP IN PLACE. PT RESTING IN BED, CALL LIGHT WITHIN REACH. IV ABX FINISHED AND UNHOOKED WITH IV SALINE LOCKED. PT HAS BIPAP IN PLACE AT 14/5 AND RESP 16. PT PANICKY ON ARRIVAL, UNSURE OF HEALTH. THIS RN WAS ABLE TO RELIEVE CONCERN AND PATIENT REQUESTING TO REST IN BED. PT DENIES PAIN OR NEEDS AT THIS TIME. PT DISCUSSED DESIRE FOR INFORMATION ON ADVANCED DIRECTIVE/POLST FORM AND ASSISTED LIVING INFORMATION.
--- NOTE | 2022-10-27 17:00 | NUR ---
Medications reconciled using pharmacy records, PCP chart notes and patient interview
--- NOTE | 2022-10-27 19:15 | NUR ---
REPORT RECEIVED FROM SAMMI FORD AND SAMMI CAMPBELL. PT RESTING IN BED. RT IN ROOM TO ADMINISTER NEB TREATMENT. NO NEEDS FROM THIS RN AT THIS TIME. CALL LIGHT IN REACH.
--- NOTE | 2022-10-27 21:15 | NUR ---
ASSESSMENT COMPLETE. LUNG SOUNDS CLEAR IN RUL, DIMINISHED AND CRACKLES IN RLL, COARS IN GAVINO, DIMINISHED IN LLL. PT ON BIPAP WITH O2 SATS AT 97%. HEART RHYTHM IRREGULAR. BOWEL TONES HYPOACTIVE. BRUISING NOTED TO BUE. PT REPORTS NO OTHER NEEDS AT THIS TIME. CALL LIGHT IN REACH.
--- NOTE | 2022-10-27 23:22 | NUR ---
PT RESTING IN BED WITH EYES CLOSED. RR EVEN AND UNLABORED. BIPAP ON WITH O2 SATS AT 92%. CALL LIGHT IN REACH. NO NEEDS IDENTIFIED AT THIS TIME.
--- NOTE | 2022-10-28 05:47 | NUR ---
[facility] DOWN TIME FROM 0100 TO 0545. SEE PAPER CHARTS.
--- NOTE | 2022-10-28 07:30 | NUR ---
WENT IN ROOM TO RECEIVE REPORT FROM DAISY CHAPA. PT STATES SHE NEEDED TO VOID. PT WAS 20A TO BS AND BACK INTO BED. PT COMPLAINT OF INCREASED SHORTNESS OF BREATH WITH O2 SATURATION 88% WHILE ON BIPAP WITH MOVEMENT. PT 02 SATURATION 92% ONCE RESTING IN BED. PT RESTING IN BED, CALL LIGHT WITHIN REACH, BEDRAILS UP FOR SAFETY, BIPAP SETTINGS 14/5 AT 35%. NO FURTHER NEEDS AT THIS TIME.
--- NOTE | 2022-10-28 07:46 | NUR ---
PER TECHNICAL INTERNSHIP, PT HAS HAD LOW URINE OUTPUT LAST NIGHT AND DURING THIS AM VOID, PT ONLY VOIDED 25ML. HOSPITALIST INFORMED OF LOWER URINE OUTPUT. WAITING ON ORDERS FOR PT.
--- NOTE | 2022-10-28 09:35 | NUR ---
PUT PATIENT ON 4L OF OXYGEN ON NC. SET PATIENT UP TO EAT BREAKFAST. PATIENT CALLED A FEW MINS LATER AND SAID "I CAN'T DO THIS! PLEASE HELP." WENT IN AND PATIENTS OXYGEN WAS 96% ON 4L PATIENT REQUESTED TO BE PUT BACK ON BIPAP, BIPAP MASK PUT ON. PATIENT DID NOT WANT ANY MORE BREAKFAST AND ASKED ME TO TAKE IT, RN NOTIFIED. CALL LIGHT IN REACH. NO FURTHER NEEDS AT THIS TIME.
--- NOTE | 2022-10-28 09:38 | NUR ---
DAUGHTER GAGAN IN ROOM TALKING WITH PT. PT REQUESTED TO HAVE BIPAP OFF TO BRUSH TEETH AND WASH FACE. PT PLACED ON 4L NC AND TOLERATING WELL. PT INFORMED WHEN FINISHED TO USE CALL LIGHT TO PLACE BACK ON BIPAP. NO FURTHER NEEDS AT THIS TIME.
--- NOTE | 2022-10-28 10:11 | NUR ---
PT RESTING IN BED, CALL LIGHT WITHIN REACH, BEDRAIL UP FOR SAFETY. PT NEEDED BELONGINGS AT BEDSIDE. PT ON BIPAP AT 14/5 AND 35%. ASSESSMENT COMPLETED AND PT ABX GIVEN.
--- NOTE | 2022-10-28 10:14 | NUR ---
Patient is sleeping with bipap in place. Patient is requesting placement on discharge. Still Operator Helper will check back later today to talk to the patient.
--- NOTE | 2022-10-28 10:34 | NUR ---
PT CALLED DUE TO IV BEEPING. IV READJUSTING. PT RESTING IN BED COMFORTABLY. DENIES NEEDS AT THIS TIME. CALL LIGHT AND PATIENT BELONGINGS WITHIN REACH.
--- NOTE | 2022-10-28 10:58 | NUR ---
IN ROOM TO TOILET PATIENT. PT BRIEF AND LINEN SATURATED IN URINE. PT UNAWARE THAT SHE URINATED.
--- NOTE | 2022-10-28 11:21 | NUR ---
DR CADENA IN TO SEE PT, DISCUSSING PLAN OF CARE. PT DAUGHTER IN ROOM, SPOKE WITH
--- NOTE | 2022-10-28 11:25 | NUR ---
PHYSICAL THERAPY IN ROOM FOR PT/OT EVALUATION.
--- NOTE | 2022-10-28 11:45 | NUR ---
PHYSICAL THERAPY AND OCCUPATIONAL THERAPY FINISHED IN ROOM, STATE PT IS UP IN CHAIR.
--- NOTE | 2022-10-28 12:34 | NUR ---
SITTING IN CHAIR.DAUGHTER IS VISITNG.PATIENT WOULD LIKE TO GO TO [facility] FOR REHAB. AFTER REHAB PATIENT WILL GO BACK AND LIVE WITH DAUGHTER.
--- NOTE | 2022-10-28 13:06 | NUR ---
IV REPLACED DUE TO FIELD START. PT TOLERATED WELL. DAUGHTER AT BEDSIDE. PT ASSISTED BACK TO BED FROM CHAIR VIA 1PA/WALKER AND PLACED BACK ON BIPAP. PT STATES SHE IS GOING TO TAKE A NAP. PT DENIES FURTHER NEEDS AT THIS TIME.
--- NOTE | 2022-10-28 14:25 | NUR ---
PT USED CALL LIGHT, THIS RN TO ROOM. PT COMPLAINT OF SHORTNESS OF BREATH, CONCERN BIPAP IS NOT WORKNG RIGHT. PT INFORMED BIPAP SETTINGS ARE CORRECTR AND OXYGEN SATURATION IS 97%. PT ASKED IF ANXIOUS PT STATED YES, MEDICATION OFFERED AND PT STATED YES SHE WANTED SOMETHING TO CALM HER ANXIETY. CALL LIGHT WITHIN REACH, BEDRAIL UP FOR SAFETY AND PT BELONGINGS AT BEDSIDE.
--- NOTE | 2022-10-28 15:31 | NUR ---
PT CALLED, STATING SHE NEEDED TO USE THE BSC. THIS RN IN ROOM. PT ASSISTED TO AND FROM BSC WITH 1PA/FWW. PT PLACED ON 4L NC DURING TRANFER SO SHE CAN HAVE A BREAK FROM BIPAP AND DRINK SOME WATER. PT TOLERATED WELL. BACK IN BED ON BIPAP CURRENTLY. CALL LIGHT WITHIN REACH AND BEDRAIL UP FOR SAFETY. PT DENIES NEEDS AT THIS TIME.
--- NOTE | 2022-10-28 15:42 | NUR ---
RT IN ROOM ASSESSING PT AND BIPAP SETTINGS.
--- NOTE | 2022-10-28 17:25 | NUR ---
PT SITTING UP IN BED TO EAT DINNER, PT CALLED TO HAVE DENTURES TO EAT MEAL, PT GIVEN DENTURES, SAT UP FURTHER IN BED AND CHICKEN CUT UP. PT PLACED ON 4L NC FOR MEAL. NO FURTHER NEEDS AT THIS TIME. CALL LIGHT WITHIN REACH AND BEDRAIL UP FOR SAFETY.
--- NOTE | 2022-10-28 18:38 | NUR ---
PT RESTING IN BED, CALL LIGHT WITHIN REACH, BEDRAILS UP FOR SAFETY. PT ON BIPAP AT 14/5 @ 35%. PT ON BIPAP FOR MOST OF THE DAY, ASIDE FROM MEAL AND TRANSFERING TO AND FROM COMMODE PT ON 4L NC. PT WORKED WITH PT/OT TODAY FOR EVAL FOR PLACEMENT AND UP IN CHAIR FOR PART OF THE DAY. PT DENIES PAIN OR OTHER CONCERNS. PT IS A 1-2PA/FWW WHEN MOVING TO BSC/CHAIR. FAMILY IN FREQUENTLY TO VISIT WHICH UPLIFTED PT MOOD SHE HAS STATED SHE GETS ANXIOUS. PT INFORMED NEED TO STAY TO RECEIVE BIPAP ASSISTANCE AND ABX UNTIL RESPIRATORY STATUS HAS IMPROVED.
--- NOTE | 2022-10-28 19:00 | NUR ---
REPORT RECEIVED FROM SAMMI CAMPBELL. PT RESTING IN BED WITH BIPAP ON. PT RESPONDS WHEN ADDRESSED. NO NEEDS IDENTIFIED AT THIS TIME. CALL LIGHT IN REACH.
--- NOTE | 2022-10-28 20:52 | NUR ---
IN TO ADMINISTER MEDICATIONS. PT TAKES PO MEDICATION WITH NO ISSUES AND TOLRATES SUB-Q INJECTION WELL. PT REQUESTING PRN ATIVAN, PRN ATIVAN ADMINISTERED, SEE MAR. ASSESSMENT COMPLETE. LUNG SOUNDS DIMINISHED WITH SOME CRACKLES IN RLL. LLL DIMINISHED. PT ON BIPAP WITH O2 SATS AT 93%. HEART RHYTHM IRREGULAR. BOWEL TONES ACTIVE. ATTENDS DRY. PT REPORTS NO OTHER NEEDS AT THIS TIME. CALL LIGHT IN REACH.
--- NOTE | 2022-10-29 02:44 | NUR ---
ASSESSMENT COMPLETE. LUNG SOUNDS COARSE IN RUL AND GAVINO. DIMINISHED IN LLL AND RLL. SOME CRACKLES IN RLL. PT O2 SATS AT 95% ON BIPAP. HEART RHYTHM AND SOUNDS IRREGULAR. BOWEL TONES ACTIVE. NO URIN NOTED IN ATTENS. PT A&O TO SELF, PLACE AND MONTH. PT NOT A&O TO YEAR, PT STATES "I DO NOT KNOW" WHEN ASKED WHAT YEAR IT IS. PT DENIES THE NEED TO USE THE RESTROOM AT THIS TIME. PT DENIES ANY OTHER NEEDS AT THIS TIME. CALL LIGHT IN REACH.
--- NOTE | 2022-10-29 03:34 | NUR ---
PT UP TO BEDSIDE COMMODE, BECOMES SOB AND TACHYCARDIC @ 180. PT PLACED BACK IN BED AND ON BIPAP. SPO2 RISES FROM 84% TO 92% ON BIPAP 14/5/35%. MD AT BEDSIDE. GIVES VERBAL ORDERS FOR BEDREST AND PURWICK USE. PRN ATVALERY GIOVEN FOR ANXIETY. HR DOWN TO 108 AT THIS TIME. NO OTHER NEEDS AT THIS TIME. CALL LIGHT IN REACH.
--- NOTE | 2022-10-29 03:46 | NUR ---
NOTIFIED FROM CITY ATTORNEY, pt HR >170S, SPO2 LOW 80S WITH 4 L OXYGEN BY NC IN PLACE. THIS RN AND PRIMARY RN IN ROOM. CPOX MACHINE READS 203 BPM, 82%-84%. BIPAP BACK ON pt. MD ON FLOOR AT THIS TIME, NOTIFIED AND IN ROOM. VERBAL ORDERS RECEIVED FOR BED REST UNTIL RESPIRATORY STATUS IMPROVES AND PUREWICK CATHETER. ORDERS REPEATED BACK TO VERIFY.
--- NOTE | 2022-10-29 08:00 | NUR ---
REPORT RECEIVED FROM NIGHT RN AND PT. CARE RESUMED. PT. C/O TROUBLE CATCHING HER BREATH AND ANXIETY. O2 SAT IS 93% ON BIPAP AND RR IS 24. ADMIN. ATIVAN. ASSESSMENT COMPLETED. PUREWICK TUBING DISCONNECTED AND BRIEF DRIED. PUREWICK RECONNECTED. CPOX IN PLACE. WILL CONTINUE TO MONITOR.
--- NOTE | 2022-10-29 09:39 | NUR ---
CHANGED PT BREIF DUE TO INCONT SMEAR/SNALL AMOUNT URINE. NEENA CARE PERFORMED BY SAMMI WISE & THIS CNA2. PT WAS WEAK WHEN ROLLING. PT HAD SLIGHT BRUISING ON HER BOTTOM, RN AWARE. VITALS/I&O'S DOCUMENTED. WASHED PT FACE. RESTING ON BIPAP, CALL LIGHT IN REACH.
--- NOTE | 2022-10-29 10:00 | NUR ---
ROUNDING ON PT. HR IS SUSTAINED 120-140S MD NOTIFIED. OTHER VITALS STABLE. PT. ON BIPAP AND IS DROWSY BUT RESPONSIVE TO SOUND. MD NOTIFIED AND VERBAL ORDER GIVEN FOR LOPRESSOR AND EKG. RT CALLED TO PT. ROOM.
--- NOTE | 2022-10-29 10:15 | NUR ---
UPDATED ON LOW URINE OUTPUT. DAUGHTER ARRIVED AND UPDATED. TELEMETRY PLACED. WILL CONTINUE TO MONITOR.
--- NOTE | 2022-10-29 12:00 | NUR ---
PT. TRANSFERRED WITH ALL BELONGINGS TO CCU. DAUGHTERS PRESENT AND REPORT GIVEN AT BEDSIDE. RT ALONG TO ASSIST WITH BIPAP.
--- NOTE | 2022-10-29 13:14 | NUR ---
JIMENEZ CATHETER PLACED AT THIS TIME, DUE TO PT HAD TO VOID, BUT WAS UNABLE TO VOID AND HAD EXTURNAL CATETHER INPLACE. PT HAS BRUSING ON BUTT AND VIGINAL AREA. HEART RATE INCREASING AND PHONE CALL TO DOCTOR.
--- NOTE | 2022-10-29 13:38 | NUR ---
CARDIZEM IVP 20MG GIVEN FOR HR OF 140'S ALSO STARTED CARDIZEM DRIP AT 3MG/HR. HEART RATE DECREASED AFTER PUSH TO THE 100'S.
--- NOTE | 2022-10-29 13:39 | NUR ---
PTS' SISTER CYNTHIA REQUESTED I VISIT WITH PT. CONNECTED AFTER PT WAS MOVED TO CCU. PT ON BIPAP, WAS AWARE OF MY PRESENCE. ANWERED QUESTIONS WITH A NOD OF HER HEAD YES/NO. HAD PRAYER WITH PT, DAUGHTER BRUCE PRESENT WELL. LEFT G.POST. GAVE BLESSING AND WILL FOLLOW
--- NOTE | 2022-10-29 14:30 | NUR ---
INCREASE CARDIZEM DRIP TO 5MG/HR DUE TO HEART RATE IN THE 120'S. JIMENEZ CATHETER DRAINING CLEAR IN COLOR URINE, BUT CONTIOUES THE NEED TO HAVE TO "GO TO THE BATHROOM AND PEE" REMIND PT THAT SHE HAS A CATHETER AND SHE IS PEEING. PT IS ON VAPO THERM AND SPO2 95% AND PT WAS TURNED TO HER RIGHT SIDE AND WILL NEED TO GO TO HER LEFT SIDE AT 15:00.
--- NOTE | 2022-10-29 14:39 | NUR ---
PT DID NOT WANT TO EAT LUNCH THIS AFTERNOON. DAUGHTERS HAVE BEEN AT THE BEDSIDE. PT C/O WANTING AIR OR A FAN, FAN ARE NOT USED IN THE HOSPITAL AT THIS TIME. PT UNDERSTANDS EVEN THOUGH SHE WILL ASK AGAIN.
--- NOTE | 2022-10-29 14:55 | NUR ---
PT TURNED TO LEFT SIDE AT THIS TIME, PLACED BACK O BIPAP WITH FIO2 35%. SPO2 97% AT THIS TIME, CARDIZEM DRIP 5MG/HR AT THIS TIME AND HEART RATE IN THE 1-TEENS. JIMENEZ CATHETER DRAINING.
--- NOTE | 2022-10-29 15:33 | NUR ---
NORCO 5/325 PO GIVEN AT THIS TIME DUE TO PT IS ON CHRONIC MEDS FOR PAIN. PT REMAINS ON BIPAP AT THIS TIME AND SPO2 96%.
--- NOTE | 2022-10-29 16:26 | NUR ---
pt c/o being nervouse at this time, shaking noted, medicated with 1mg ativan ivp given. Pt remains on BIPAP AT 04/04/35 WITH SPO2 94, HEART RATE 104 WITH CARDIZEM DRIP AT 5MG/HR
--- NOTE | 2022-10-29 17:05 | NUR ---
WITH CARDIZEM DRIP INFUSING VS Q 15MINUTES, SEE PAPER FORM IN HARD CHART. PT APPEARS TO BE RESTING COMFORTABLE AT THIS TIME. JIMENEZ DRAINING.
--- NOTE | 2022-10-29 17:31 | NUR ---
PT IS ASLEEP AND APPEARS TO BE RESTING COMFORABLE AT THIS TIME. PT DINNER WAS PLACED IN HER ROOM, BUT WILL LET HER REST MORE BEFORE WAKING HER UP. CARDIZEM DRIP 5MG/HR HR 101, BIPAP 14/5/35% SPO2 95% AT THIS TIME. DAUGHTER REMAINS AT THE BEDSIDE AT THIS TIME.
--- NOTE | 2022-10-29 18:02 | NUR ---
pt awake and wanting to eat dinner, pt in bed hob up to at 90% to eat and then placed on vapotherm at 20l's 40% and 35C for heat. SPO2 93% while eatting. Family remains at bedside.
--- NOTE | 2022-10-29 18:25 | NUR ---
pt awake, finished dinner and contioues to c/o pressure with the redman catheter, it is draining at this time. pt repositioned also at this time.
--- NOTE | 2022-10-29 20:30 | NUR ---
TO PT ROOM FOR ASSESSMENT AND MEDICATION ADMINISTRATION. RT IS AT BEDSIDE COMPLETING EDUCATION WITH PT AND FAMILY. BIPAP IN PLACE AT 35%. DILTIAZEM AT 5MG/HR. PT REPORTS FEELING AXIOUS, ATIVAN ADMINISTERED. FAMILY IS AT BEDSIDE AND COMFORTING TO PT. JIMENEZ IN PLACE. CALL LIGHT WITHIN REACH.
--- NOTE | 2022-10-29 22:00 | NUR ---
ROUNDED ON PT. PT APPEARS TO BE RESTING COMFORTABLY. BIPAP IN PLACE AT35%, SPO2 97%. DILTIAZEM DRIP REMAINS AT 5MG/HR. FAMILY AT BEDSIDE. CALL LIGHT WITHIN REACH.
--- NOTE | 2022-10-29 23:00 | NUR ---
ROUNDED ON PT. PT APPEARS TO BE SLEEPING COMFORTABLY. RESPIRATIONS EVEN AND REGULAR. CALL LIGHT WITHIN REACH.
--- NOTE | 2022-10-30 00:34 | NUR ---
RESPONDED TO CALL LIGHT. PT C/O ANXIETY AND ASKED FOR WARM BLANKET. PRN ANXIOLYTIC GIVEN AND WARM BLANKET GIVEN. CALL LIGHT WITHIN REACH. PT HAS HAD MINIMAL U/O 100ML THIS SHIFT.
--- NOTE | 2022-10-30 02:21 | NUR ---
ROUNDED ON PT. PT APPEARS TO BE SLEEPING COMFORTABLY. DILTIAZEM REMAINS AT 5MG/HR. BIPAP AT 30%, SPO2 91%. U/O INADEQUATE, DARK URINE. CALL LIGHT WITHIN REACH.
--- NOTE | 2022-10-30 04:00 | NUR ---
PT ASSESSMENT COMPLETED. DILTIAZEM DRIP AT 5MG/HR. JIMENEZ INTACT DRAINING MICKIE URINE, INADEQUATE FOR NOC SHIFT. FAMILY AT BEDSIDE. CALL LIGHT WITHIN REACH.
--- NOTE | 2022-10-30 05:30 | NUR ---
PT WAS UP TO CHAIR FOR ABOUT AN HOUR ON 3L NC. PT PREOXYGENATED WITH 6L PER RT PRIOR TO TRANSFERRING BACK TO BED WITH 2 PERSON ASSIST. PT TOLERATED WELL. CALL LIGHT WITHIN REACH. FAMILY AT BEDSIDE.
--- NOTE | 2022-10-30 08:49 | NUR ---
IN ROOM FOR MEDICATION ADMINISTRATION AND ASSESSMENT. RT IN ROOM ATTEMPTING TO PLACE PT ON HOME BIPAP, NOT TOLERATED WELL. PT BACK ON 3 L NC AT THIS TIME. SP02= 90%. RESPIRATIONS EVEN BUT LABORED. BELLY BREATHING AND USE OF ACCESSORY MUSCLES NOTED. CARDIZEM TRIP TITRATED TO 5 MG/HR TO MAINTAIN HEART RATE LESS THAN 100. PT HAS ONE PLUS EDEMA IN BILATERAL LOWE LEGS. LUNGS SOUND DIMINISHED THROUGHOUT WITH AN EXPIRATORY WHEEZE NOTED IN UPPER AIRWAYS. PLAN OF CARE FOR DAY ESTABLISHED WITH PT AND DAUGHTER. CALL LIGHT WITHIN REACH. WILL CONTINUE TO MONITOR.
--- NOTE | 2022-10-30 09:09 | NUR ---
DR CADENA UPDATED ON PT'S LUNG SOUNDS, VITAL SIGNS, EDEMA, AND OTHER ASSESSMENT FINDINGS. VERBAL ORDER FOR 40 MG OF IV LASIX ONCE GIVEN AT THIS TIME (SEE EMAR). SURINDER IN ROOM AT THIS TIME TO TALK WITH FAMILY AND ASSESS PT.
--- NOTE | 2022-10-30 10:02 | NUR ---
PT HAD URINE OUTPUT OF 275 MLS/HR. RESTING IN BED ASLEEP ON 2 L NC. SPO2 = 90%, RESPIRATIONS UNLABORED. DILTIZEM DRIP NOT TITRATED AT THS TIME FOR HEART RATE MAINTAINED LESS THAN 100 BEATS PER MINUTE. DAUGHTER AT BEDSIDE. WILL CONTINUE TO MONITOR.
--- NOTE | 2022-10-30 10:24 | NUR ---
ASSISTED PT FROM BED TO CHAIR. PT HEART RATE UP IN THE 120S WITH EXERTION. SPO2 = 88% ON 2 L WITH ACTIVITY. PT NOW RESTING IN CHAIR. CARDIZEM DRIP INFUSING. WILL CONTINUE TO CLOSELY MONITOR HEART RATE AND OXYGEN SATURATIONS. DAUGHTER REMAINS AT BEDSIDE.
--- NOTE | 2022-10-30 11:44 | NUR ---
PT HEART RATE AT 120-130 AT REST. DILTIAZEM DRIP TITRATED UP AT THIS TIME (SEE FLOWSHEET).
--- NOTE | 2022-10-30 11:54 | NUR ---
ASSESSMENT COMPLETED. PT REPOSITIONED IN CHIAR. LUNGS SOUND DIMINSHED. PT MAINTAINING SPO2 GREATER THAN 90% ON 4 L NC. PT REMAINS IN AFIB RVR WITH HERT RATE IN THE 130S.
--- NOTE | 2022-10-30 12:19 | NUR ---
PT ASLEEP IN CHAIR. DID NOT DISTURB
--- NOTE | 2022-10-30 12:25 | EKG ---
[facility] [address] [place] [address] Signed Atrial fibrillation with rapid ventricular response Septal infarct , age undetermined Abnormal ECG When compared with ECG of 26-OCT-2022 17:20, (Unconfirmed) Previous ECG has undetermined rhythm, needs review Septal infarct is now present Confirmed by Yahir Cadena MD () on 10/28/2022 11:24:10 PM Electronically Signed By: YAHIR CADENA MD 10/28/22 1570 Electronically Signed By: YAHIR CADENA MD 10/30/22 1225 PATIENT NAME: GABRIEL HOUSTON Electrocardiogram DATE OF : 53 PHYSICIAN: YAHIR CADENA MD REPORT #: [id number] REPORT IS CONFIDENTIAL AND NOT TO BE RELEASED WITHOUT AUTHORIZATION
--- NOTE | 2022-10-30 12:31 | NUR ---
PT REQUESTING TO GO BACK TO BED AND PLACED ON BIPAP. RT IN ROOM AT THIS TIME TO GIVE PT A BREATHING TX AND ON BIPAP. PT GIVEN PRN MEDICATION FOR ANXIETY AT THIS TIME. PT REMAINS ON DILTAZEM DRIP AT 15 MG/HR. HEART RATE REMAINS 110-125 AT REST.
--- NOTE | 2022-10-30 13:00 | NUR ---
UPDATED DR CADENA ON PTS HEART RATE, DILTIAZEM DRIP, AND OXYGEN NEEDS. PLAN ESTABLISHED TO GIVEN PT IV LOPRESSOR Q 6 HOURS AND START TITRATING DILTIAZEM DRIP DOWN
--- NOTE | 2022-10-30 13:23 | NUR ---
IV LOPRESSOR ADMINISTERED AND DILTIAZEM DRIP TITRATED DOWN (SEE FLOWSHEET). PT'S SPO2 DOWN TO 87% ON BIPAP. FIO2 ON BIPAP TITRATED UP TO 40%. SPO2 NOW AT 92-93%. WILL CONTINUE TO CLOESLY MONITOR.
--- NOTE | 2022-10-30 14:45 | NUR ---
PT TAKEN OFF OF HER BIPAP AND PLACED BACK ON OXYGEN VIA NC PER HER REQUEST. PT'S FAMILY AT THE BEDSIDE.
--- NOTE | 2022-10-30 14:54 | NUR ---
PT PLACED BACK ON HER BIPAP PER HER REQUEST TO TAKE A NAP.
--- NOTE | 2022-10-30 16:25 | NUR ---
IN ROOM TO ASSESS PT. HEART RATE 90-110. REMAINS ON DILTIAZEM DRIP AT 7.5 MG/HR. PT TAKEN OFF BIPAP. PT REQUESTING BREATHING TX. RT IN ROOM AT THIS TIME. ASSISTED PT WITH REPOSITIONING IN BED. CALL LIGHT WITHIN REACH. DAUGHTER AT BEDSIDE. WILL CONTINUE TO MONITOR.
--- NOTE | 2022-10-30 21:16 | NUR ---
PT REQUESTING ATIVAN. CURRENTLY WEARING BIPAP AND BECOMES ANXIOUS WITH MASK. ATIVAN GIVEN. FAMILY AT BEDSIDE. CALL LIGHT WITHIN REACH.
--- NOTE | 2022-10-30 23:49 | NUR ---
RN IN ROOM TO ADDRESS BIPAP ALARM. PT REQUESTS PUDDING, PLACED ON NC AT THIS TIME, SP02 91% WHILE EATING. BIPAP PLACED IN STANDBY.
--- NOTE | 2022-10-31 00:10 | NUR ---
PT ASSESSMENT COMPLETED. BIPAP PLACE ON PT AT 40%. DILTIAZEM GTT REMAINS AT 7.5MG/HR. JIMENEZ INTACT. CALL LIGHT WITHIN REACH.
--- NOTE | 2022-10-31 01:06 | NUR ---
PT SAT'S CONSISTENTLY 86-87%, INCREASED BIPAP TO FROM 30-35% FIO2 WITHOUT CHANGE. SET TO 40% SATS UP TO 90%. PT APPEARS TO BE SLEEPING COMFORTABLY. CALL LIGHT WITHIN REACH.
--- NOTE | 2022-10-31 02:05 | NUR ---
LOPRESSOR ADMINISTERED. PT IS A/O, BIPAP ON AT 40%. TURNED PT AND READJUSTED IN BED. JIMENEZ CATHETER DRAINING WELL. NO CHANGE TO DILTIAZEM GTT.
--- NOTE | 2022-10-31 03:00 | NUR ---
ROUNDED ON PT. PT A/O, SELF CHANGED TO NC TO EAT PUDDING WITH FAMILY ASSISTANCE. DENIES NEEDS/COMPLAINTS ATT. CALL LIGHT WITHIN REACH.
--- NOTE | 2022-10-31 03:59 | NUR ---
PT ASSESSMENT COMPLETED. READJUSTED PT IN BED. NO TITRATION TO DILTIAZEM DRIP. BIPAP AT 40%, RESPIRATIONS EVEN AND REGULAR. CALL LIGHT WITHIN REACH.
--- NOTE | 2022-10-31 05:13 | NUR ---
PT CURRENTLY ON 3L NC. SATS CONSISTANT AT 87-88%. INCREASED TO 4L NC SPO2 90%. RESPIRATIONS EVEN AND REGULAR, APPEARS TO BE SLEEPING COMFORTABLY.
--- NOTE | 2022-10-31 06:04 | NUR ---
REMAINS ON NC NOW AT 5L SPO2 93%. APPEARS TO BE SLEEPING COMFORTABLY. RESPIRATIONS EVEN AND REGULAR. JIMENEZ EMPTIED, MINIMAL OUTPUT WITH 500ML FOR THE SHIFT. FAMILY AT BEDSIDE. CALL LIGHT WITHIN REACH.
--- NOTE | 2022-10-31 06:51 | EKG ---
[facility] [address] [place] [address] Signed Atrial fibrillation with rapid ventricular response Low voltage QRS Left posterior fascicular block Septal infarct (cited on or before 22-OCT-2021) Abnormal ECG When compared with ECG of 27-OCT-2022 11:06, Questionable change in initial forces of Septal leads Nonspecific T wave abnormality, worse in Inferior leads Confirmed by RUMA DUPREE MD ([id number]) on 10/31/2022 6:50:53 AM Electronically Signed By: RUMA DUPREE MD 10/31/22 0651 PATIENT NAME: GABRIEL HOUSTON Electrocardiogram DATE OF : 53 PHYSICIAN: RUMA DUPREE MD REPORT #: [id number] REPORT IS CONFIDENTIAL AND NOT TO BE RELEASED WITHOUT AUTHORIZATION
--- NOTE | 2022-10-31 06:59 | NUR ---
ASSISTED PT TO BEDSIDE COMMODE. PT BECAME TACHYCARDIC INTO 150'S WITH RESPIRATORY WHEEZING. TWO PERSON ASSIST BACK TO BED. REMAINS ON 5L NC.
--- NOTE | 2022-10-31 07:31 | NUR ---
REPORT RECEIVED, CARE OF PT ASSUMED AT THIS TIME.
--- NOTE | 2022-10-31 08:30 | NUR ---
PT ON 6 L NC. DILTAZEM DRIP CONTINUES TO INFUSE. DR DUPREE IN ROOM AT THIS TIME. PLAN ESTABLISHED TO TRANSITION PT OFF OF THE DILTIAZEM DRIP AND ONTO ORAL METOPROLOL AND PRN PUSHES OF IV METOPROLOL. PT NOW EATING BREAKFAST. FAMILY UNDERSTANDS PLAN OF CARE. CALL LIGHT WITHIN REACH, WILL CONTINUE TO MONIOTR.
--- NOTE | 2022-10-31 09:37 | NUR ---
PT TRANSITIONED OFF OF DILTAZEM DRIP. ORAL METOPROLOL GIVEN ALONG WITH PRN IV METOPROLOL (SEE EMAR). PT UP OUT OF BED INTO RECLINER CHAIR. PT ABLE TO USE 4WW WITH MINIMAL ASSIST. HEART RATE REMAINED LESS THAT 100 WITH AMBULATION. PT NOW RESTING IN RECLINER. HEART RATE 80-95 WITH REST. SUPPLEMENTAL OXYGEN DECREASED TO 4 L NC. SPO2 =93%. PT GIVEN SCHEDULED PAIN MEDICATION FOR GENERALIZED DISCOMFORT. PT NOW IN RECLINER. CALL LIGHT WITHIN REACH AND DAUGHTER AT BEDSIDE. NO FURTHER NEEDS AT THIS TIME
--- NOTE | 2022-10-31 10:33 | NUR ---
PT RESTING IN CHAIR. HEART RATE IN THE 80S AT REST. SPO2 = 95% ON 4 L. CALL LIGHT WITHIN REACH. WILL CONTINUE TO MONITOR.
--- NOTE | 2022-10-31 12:59 | NUR ---
PT RESTING AWAKE IN BED. HEART RATE INTHE 90S. PT STATES SHE FEELSB CATALINO THAN THIS MORNING. SPO2 = 93% ON 4 L NC. LUNGS SOUND DIMINISHED IN THE BASES BUT CLEAR IN THE UPPER AIRWAYS. FAMILY REMAINS AT BEDSIDE. CALL LIGHT WITHIN REACH. WILL CONTINUE TO MONITOR.
--- NOTE | 2022-10-31 15:25 | NUR ---
ASSESSMENT COMPLETED. BED BATH GIVEN. NEENA CARE AND JIMENEZ PERFORMED. PT REPOSITIONED IN BED WITH TWO NURSE ASSIST. PT REMAINS ON 4 L NC AT THIS TIME. EDEMA IN LEGS HAS DECREASED. HEART RATE REMAINS IN THE 80-90S AT REST. IV IN LEFT FOREARM NOT FLUSHING. IV DC'D AND NEW IV STARTED IN RIGHT ARM. WELL TOLERATED BY PT. CALL LIGHT WITHIN REACH, WILL CONTINUE MONITOR.
--- NOTE | 2022-10-31 16:05 | NUR ---
RT IN ROOM TO ADMINISTER BREATHING TX AT THIS TIME.
--- NOTE | 2022-10-31 17:10 | NUR ---
PT EATING DINNER WITH FAMILY AND NOW LAYING BACK IN BED. HEART RATE IN THE 90S. PT REMAINS ON 4 L NC. CALL LIGHT WITHIN REACH. WILL CONTINUE TO MONITOR.
--- NOTE | 2022-10-31 18:15 | NUR ---
PT RESTING IN BED AWAKE. DAUGHTER AT BEDSIDE. DENIES ANY NEEDS AT THIS TIME
--- NOTE | 2022-10-31 19:30 | NUR ---
REPORT RECEIVED FROM CELINA CHAPA, PT SITTING IN BED, DAUGHTER IN ROOM, HR 80-90'S AFIB.
--- NOTE | 2022-10-31 21:20 | NUR ---
REPORT GIVEN TO JOE CHAPA. PT TRANSFERRING TO FLOOR WITH GENERATOR SWITCHBOARD OPERATOR AND RT, PT AWARE, DAUGHTER IN ROOM.
--- NOTE | 2022-10-31 21:30 | NUR ---
pt ARRIVED TO [facility] FLOOR FROM CCU AT THIS TIME VIA BED. pt A/OX4, DAUGHTER ALSO IN ROOM. pt ORIENTED IN ROOM AND CALL LIGHT IN REACH. VSS, pt ON 3-3.5LNC. JIMENEZ REMAINS PATENT AND EMPTIED. NO ADDITIONAL NEEDS, CALL LIGHT IN REACH.
--- NOTE | 2022-11-01 00:09 | NUR ---
IN PT ROOM FOR NEUROLOGICAL PHYSIOTHERAPIST OF PRN SLEEP OF TRAZADONE. PT ALERT AND ORIENTED SITTING IN BED W/CPAP MASK IN PLACE (VERIFIED BY RT). CALL LIGHT WITHIN REACH, NO FURTHER NEEDS AT THIS TIME.
--- NOTE | 2022-11-01 00:45 | NUR ---
IN PT ROOM D/T CALL LIGHT. PT DAUGHTER STATES SHE WOKE UP TO HER MOTHER SCREAMING IN HER SLEEP. PT ALERT AND ORIENTED X3 (DATE) IN BED. PT STATES NO NIGHTMARE OR ANXIETY PRESENT AT THIS TIME. O2 SAT OF 94%. PT IS NOT SYMPTOMATIC. BED ALARM ON, CALL LIGHT WITHIN REACH, NO FURTHER NEEDS AT THIS TIME.
--- NOTE | 2022-11-01 03:02 | NUR ---
PT RESTING IN BED W/EYES CLOSED. RESPIRATIONS ARE EVEN AND UNLABORED, NO SIGNS OF DISTRESS. PT ON HOME CPAP MACHINE (APPROVED BY RT), W/SUPP 3L O2. PT DAUGHTER SLEEPING IN RECLINER AT BEDSIDE. CALL LIGHT WITHIN REACH, BED ALARM ON.
--- NOTE | 2022-11-01 04:03 | NUR ---
PT RESTING IN BED W/EYES CLOSED. RESPIRATIONS ARE EVEN AND UNLABORED, NO SIGNS OF DISTRESS. PT APPEARS COMFORTABLE. CPAP IN PLACE W/SUPP 3L O2. DAUGHTER ASLEEP AT BEDSIDE. CALL LIGHT WITHIN REACH, BED ALARM ON.
--- NOTE | 2022-11-01 06:11 | NUR ---
IN PT ROOM FOR JIMENEZ CATH REMOVAL. CATHETER APPEARED TO LEAK IN NIGHT, SATURATION IN PT NEENA AREA, COMPLETE BEDDING CHANGE. JIMENEZ REMOVED, TIP INTACT, 9 ML REMOVED FROM BALLOON, PT TOLERATED VERY WELL. NEENA CARE PERFORMED. SKIN CLEANED, DRIED, NEW DESENEX POWDER PLACED UNDER BREASTS AND IN NEENA REGION. NEW ALLEYVN PLACED ON BEHIND. PT STOOD AT BEDSIDE FOR PLACEMENT OF DEPENDS W/1PA AND FWW. O2 SATS REMAINED AT 91% W/AMBULATION. PT NOW RESTING IN RECLINER W/GIBSON RT IN ROOM FOR BREATHING TX. PT REQUESTED PRN ATIVAN FOR ANXIETY AFTER AMBULATION, GIVEN (SEE EMAR). DAUGHTER ON COUCH. NO ACUTE CHANGES FROM PREVIOUS ASSESSMENT. PT LUNGS ARE COARSE THROUGHOUT W/EXPIRATORY WHEEZES. CALL LIGHT WITHIN REACH, RT IN ROOM, NO FURTHER NEEDS AT THIS TIME.
--- NOTE | 2022-11-01 07:29 | NUR ---
REPORT RECEIVED FROM SAMMI DIAZ. PT UP TO CHAIR, IV CANULA LOOSE, TIGHTENED AND NEW DRESSING APPLIED PER PROTOCOL. PT REPORTS 4/10 HEADACHE PAIN THAT IS IMPROVING. PT DENIES NEED FOR ADDIITONAL PAIN MEDICATION. PT 98% ON 3L O2 BY NC. PT WEANED TO 2L O2 BY NC AND MAINTAINS OXYGEN SATURATIONS ABOVE 94%. PTS DAUGHTER AT BEDSIDE, NO ADDITIONAL REQUESTS OR COMPLAINTS. CALL LIGHT WITHIN REACH. PT REMAINS UP TO CHAIR.
--- NOTE | 2022-11-01 07:46 | NUR ---
MORNING ASSESSMENT AND MEDICATION DUE. PT REMAINS UP TO CHAIR. PT UP TO STAND AND ADJUST IN CHAIR. PT ABLE TO STAND WITH STAND BY ASSIST AND FWW. PT SCOOTS BACK IN CHAIR INDEPENDANTLY. BMAT LEVEL 3. PT REPORTS ONGOING 4/10 HEADACHE PAIN. PT DENIES NEED FOR ADDITONAL PAIN MEDICATION. PT ALERT ADN ORIENTED TO ALL, CALM AND COOPERATIVE AT THIS TIEM. LUNG SOUNDS CLEAR IN UPPER LOBES, CORSE AND DEMINISHED IN BASES. RESPIRATORY EFFOT REMAINS WNL. OCCATIONAL COUGH NOTED. NO SPUTUM NOTED AT THIS TIME. PT TOELRATING 2L O2 BY NC WITH OXGYEN SATUTRAION CURRENTLY 97%. HEART SOUNDS IRREGULAR WITH APICAL PULSE OF 84. EDEMA TO BILATERAL LOWER EXTREMITIES REMAINS +1. ABDOMEN SOFT AND NON TENDER. BOWEL TONES ACTIVE. PT DUE TO VOID AFTER CATHETER REMOVEAL THIS MORNING, MONITORING. MEDICATIONS GIVEN. PT DENIES ADDITIONAL NEEDS AT THIS TIME. CALL LIGHT WITHIN REACH. FAMILY AT BEDSIDE.
--- NOTE | 2022-11-01 09:54 | NUR ---
PT IS SITTING IN CHAIR AFTER BREAKFAST. VITALS AND I/O HAVE BEEN DOCUMENTED. PT HAS NO OHTER NEEDS AT THIS TIME, CALL LIGHT IS WITHIN REACH.
--- NOTE | 2022-11-01 10:02 | NUR ---
THIS RN TO ROOM TO CHECK ON PT. PT REMAINS UP TO CHAIR, RESTING WITH EYES CLOSED. PT AWAKENS TO VOICE. IV FLUSHED AND SALINE LOCKED AFTER IV ABX WERE COMPLETE. ALCOHOL CAP APPLIED. PT REPORTS 3/10 HEADACHE AND OTHERWISE DENIES PAIN. PHYSICAL THERAPY TO BEDSIDE TO WORK WITH PT. PT DENIES ADDITIONAL REQUESTS OR COMPLAINTS. CONTINUES TO TOELRATE 2L O2 BY NC WITH OXGYEN SATURATIOSN ABOVE 94%. CALL LIGHT WITHIN REACH.
--- NOTE | 2022-11-01 11:10 | NUR ---
HOURLY ROUNDING: PT RESTING IN BED. PT REPROTS PHYSICAL THERAPY WENT "PRETTY WELL." PT REPORTS 07/01 HEADACHE. ICE PACK PROVIDED TO BACK OF NECK WHICH PT STATES HELPS. PT DUE TO VOID. PT DENIES NEED TO VOID. PO FLUIDS ENCOURAGED. OXGYEN SATURATION 96% ON PTS BASELINE 2L O2 BY NC. PT DENIES ADDITIONAL REQUESTS OR COMPLAINTS. CALL LIGHT WITHIN REACH. BED RAILS UP. FAMILY AT BEDSIDE AND UPDATED ON PLAN OF CARE.
--- NOTE | 2022-11-01 12:25 | NUR ---
pT CALL LIGHT ON. PT REQUESTS ASSISTANCE UP TO THE RESTROOM. STAND BY ASSIST WITH FWW UP TO RESTROOM. PT VOIDS 300ML AND HAS SMALL LOOSE BOWEL MOVEMENT. PT ASSISTED WITH NEENA CARE. DEPENDS CHANGED. STAND BY ASSIST BACK TO CHAIR. PT REPROTS FEELIGN SHORT OF BREATH. OXGEYN SATURATION REMAINS AT 92% ON 2L O2 BY NC. PT RPEORTS IMPROVED HEADACHE NOW AT 2/10. PT DENEIS NEED FOR ADDITIONAL PAIN MEDICATION. NO ADDITIONAL REQUESTS OR COMPLAINTS. CALL LIGHT RON SMITH. ICE WATER REFILLED.
--- NOTE | 2022-11-01 13:13 | NUR ---
PT IS SITTING UP IN CHAIR AFTER LUNCH. VITALS AND I/O HAVE BEEN DOCUMENTED. PT HAS NO OTHER NEEDS AT THIS TIME, CALL LIGHT IS WITHIN REACH.
--- NOTE | 2022-11-01 13:39 | NUR ---
AFTERNOON ASSESSMENT DUE. PT REMAINS UP TO CHAIR, VISITING WITH HER DAUGHTER. PT IS IN GOOD SPIRITS, SMILING AND TELLING STORIES. PT RPEORTS 2/10 HEADACHE PAIN THAT IS WELL CONTROLLED WITH THE ICE PACK. PT DENIES NEED FOR ADDITONAL PAIN MEDICATION. PT DENIES [place]A. PT ALERT AND OREINTED TO ALL. LUGN SOUDNS CLEAR THROUGHOUT WITH OCCATIONAL EXPIRATORY WHEEZE IN UPPER LOBES WHICH CLEAR WITH COUGH. PT TOLERATING 2L O2 BY NC PER BASELINE WITH OXGYEN SATURATION OF 95%. THICH YELLOW SPUTUM PRODUCTION WITH COUGH, SMALL TO MODERATE AMOUNT. HEART TONES REMAIN IRREGULAR WITH APICAL PULSE OF 82. EDEMA IN BLE NOW TRACE. SKIN UNCHANGED. ABDOMEN SOFT AND NON TENDER. BOWEL TONES ACTIVE. PT EDUCATION DONE REGARDING HOME OXGYEN USE, CHF, AND GENERAL HEALTH CARE WITH FOLLOW UP WITH HER PRIMARY CARE. PT VERBALIZES UNDERSTANDING AND STATES HER QUESTIONS HAVE BEEN ANSWERED. NO ADDITIONAL REQUESTS OR COMPLAINTS. CALL LIGHT WITHIN REACH. FAMILY AT BEDSIDE.
--- NOTE | 2022-11-01 15:03 | NUR ---
PT CALL LIGHT ON. PT REQUESS A BREATHING TREATEMENT "TO HELP GET THIS PHLEM OUT." OXGYEN SATURATIONS ABOVE 90% ON 2L O2 BY NC. MESSAGE SENT TO MD REGARDING POSSIBLE ACAPELLA FOR PT. RT CALLED TO BEDSIDE AND GIVES BREATHIGN TREATMENETS SCHEDULED FOR AFTERNOON. NO INCREASED WORK OF BREATHING NOTED. RR OF 20. AFTERNOON SCHEDULED PAIN MEDICAITON GIVEN FOR /10 HEADACHE ADN 4/10 HIP PAIN (SEE JAN). PT DENIES ADDITONAL REQUSETS OR COMPLAINTS. CALL LIGHT RON SMITH.
--- NOTE | 2022-11-01 17:13 | NUR ---
THIS RN TO ROOM TO CHECK ON PT. PT REPORTS SHE WAS JUST UP TO THE RESTROOM WITH HEALTH AND SAFETY ADVISOR. PT REPORTS HEADACHE AND HIP PAIN HAVE IMPROVED NOW /. PT DENIES NEED FOR ADDITONAL PAIN MEDICATION. DINNER DELIVERED. PT DENEIS NAUSEA. NO ADDITIONAL NEEDS AT THIS TIME. CALL LIGHT WITHIN REACH. PT TALKING WITH A FREIND ON THE PHONE, LAUGHING AND CHEERFUL.
--- NOTE | 2022-11-01 18:00 | NUR ---
PT HERE FOR FLU AND PNEUMONA. PT UP WITH 1 PERSN ASSIST AND FWW TO AMBLUATE IN ROOM, TO RESTROOM, AND TO CHAIR THIS SHIFT. PHYSICAL THERAPY EVALUATION THIS SHIFT. PT TOLRATING REGULAR DIET WITH GOOD APPTITIE,NO NAUSEA THIS SHIFT. HEART RATE REMAINS WELL CONTROLED. PT WEANED TO 2L O2 BY NC WHICH IS HER BASELINE, TOLERATING WITH OXGYEN SATURATIONS ABOVE 92%. PT USES HOME CPAP WHEN SLEEPING. LUNG SOUNDS IMPROVING THIS SHIFT, SCHEDULED NEBULIZER TREATEMENTS GIVEN. PT ALERT AND ORENTIED. FAMILY AT BEDSIDE THROUGHOUT SHIFT. TRAZADONE DOSE DECREASED. PT VOIDIGN QUANTIT SUFFICIENT. PT USES CALL LIGHT AND MAKES NEEDS KNOWN.
--- NOTE | 2022-11-01 18:34 | NUR ---
HOURLY ROUNDING: PT UP TO CHAIR. PT REPORTS 2/10 HEADACHE AND BILATERAL HIP PAIN THAT IS WELL CONTROLLED. PT DENIES NEED FOR ADDITONAL MEDICATON. PT WORKIGN ON ACAPELLA AND REPORTS IT IS "HELPING A LOT." PT CHEERFUL AND INTERACTIVE WITH CARES. NO ADDITONAL REQUESTS OR COMPLAINTS. CALL LIGHT WITHIN REACH.
--- NOTE | 2022-11-01 19:10 | NUR ---
REPORT RECEIVED FROM SAMMI FRANK. PT SITTING UP IN CHAIR. PT REPORTS NO NEEDS AT THIS TIME. CALL LIGHT IN REACH.
--- NOTE | 2022-11-01 20:20 | NUR ---
CALL LIGHT ANSWERED. SBA WITH FWW TO RESTROOM FOR VOID. pt BACK IN BED, LABORED BREATHING AFTER AMBULATION. pt C/O SOB. SCHEDULED NEB TREATMENTS STARTED. PRIMARY RNS IN ROOM.
--- NOTE | 2022-11-01 20:44 | NUR ---
IN TO ADMINISTER MEDICATIONS, SEE MAR. ASSESSMENT COMPLETE. LUNG SOUNDS EXPIRATORY WHEEZING THROUGHOUT. CRACKLES IN LLL. HEART RATE AND RHYTHM IRREGULAR. BRUISING TO ARMS NOTED. PT REPORTING PAIN 6/10 TO HIPS. VITALS COMPLETE. PTs CPAP ON PER PT REQUEST. PT REPORTS NO OTHER NEEDS AT THIS TIME. CALL LIGHT IN REACH. BED ALARM ON.
--- NOTE | 2022-11-01 23:37 | NUR ---
IN TO ROUND ON PT. PT STATES "I CAN NOT GET TO SLEEP." PT OFFERED PRN MELATONIN, PT ACCEPTS. PRN MELATONIN ADMINISTERED, SEE MAR. PT COMPLAINING OF IV IRRITATION. IV FLUSHES WNL. REDNESS NOTED TO INSTERTION SITE. IV WRAPPED WITH CURITY WITH NO TENSION AND SECURED WITH TAPE TO PREVENT ID BAND FROM RUBBING AGAINST IV SITE. PT REQUESTING TO USE RESTROOM. 1PA WITH FWW FROM BED TO RESTROOM AND BACK TO BED. PT HAS A SLOW STEADY GAIT. PT REPORTS NO OTHER NEEDS AT THIS TIME. CALL LIGHT IN REACH. BED ALARM ON.
--- NOTE | 2022-11-02 05:35 | NUR ---
IN TO ROUND ON PT. PT AWAKE UPON ENTERING ROOM. PT REQUESTING TO BE PLACED ON NC. 2L NC PLACED. PTs O2 SATS AT 98% ASSESSMENT COMPLETE. PT REPORTING PAIN 8/10 IN HIPS, PT DENIES WANTING ANY PAIN MEDICATION AT THIS TIME. LUNG SOUNDS RUL AND RLL EXPIRATORY WHEEZING. GAVINO DIMINISHED WITH EXPIRATORY WHEEZE. LLL DIMINISHED. PT REQUESTING TO USE RESTROOM. PT USES FWW AND SBA FROM BED TO RESTROOM AND BACK TO BED. PTs GAIT IS SLOW AND STEADY. VITALS COMPLETE. I&Os COMPLETE. PT REPORTS NO OTHER NEEDS A THIS TIME. CALL LIGHT IN REACH. BED ALARM ON.
--- NOTE | 2022-11-02 06:53 | NUR ---
THIS RN REVIEWED ORIENTEE SAMMI VILLA'S DOCUMENTATION FROM 0100 TO SHIFT CHANGE.
--- NOTE | 2022-11-02 07:40 | NUR ---
REPROT RECEIVED FROM SAMMI VILLA. PT UP TO CHAIR, PT REQUESTS A BREATHING TREATEMENT STATING SHE HAD A "LITTLE ANXIETY." RT CALLED AND STATES THEY WILL BE DOWN SHORTLY FOR BREATHING TREATMENT. OXGYEN SATURATION CURRENTLY 93% ON 2L O2 BY NC. HEART RATE IN THE 80'S. PT DENIES PAIN AND NAUSEA, NO ADDITONAL REQUESTS OR COMPLAINTS. FAMILY AT BEDSIDE. CALL LIGHT RON SMITH.
--- NOTE | 2022-11-02 08:19 | NUR ---
MORNING ASSESSMENT AND MEDICATION DUE. PT UP TO CHAIR. PT TEARFUL AND REPORTS HIGH ANXIETY. THERAPUTIC COMMUNICATION REVEALS THAT ANXIETY IS DUE FEAR OF DISCHARGE TODAY. EDUCATION DONE WITH PT. PT ASSUSED THAT HER NEEDS WILL BE MET. MEDICATION GIVEN TO HELP PT RELAX. PT REPORTS 2/10 PAIN IN HIPS AND HEADACHE, SCHEDULED MEDICATION GIVEN. PT ALERT AND ORIENTE TO ALL. PT REPROTS SHE IS AFRAID THAT SHE CANNOT CARE FOR HERSELF AT HOME AND CONTINUES TO REQUEST PLACEMENT IN ASSISTED LIVING OR REHAB. PT REMAINS BMAT LEVEL 3 WITH 1 PERSON ASSIST AND FWW. LUNG SOUNDS CLEAR WITH OCCATIONAL EXIRATORY WHEEZE NOTED. PRODUCITVE COUGH WITH SMALL AMOUNTS OF YELLOW SPUTUM. PT REMAINS ON BASELINE 2L O2 BY NC WITH OXGYEN SATURATIONS ABOVE 92%, CURRENTLY 94%. MILD TACHYCARDIA NOTED, PT ATTRIBUTES THIS TO ANXIETY, MEDICATION GIVEN FOR RATE CONTROL. MOISTURE AND REDNESS REMAINS UNDER PANNUS. MICONAZOLE POWDER APPLIED. PT DRIFTS OFF TO SLEEP. NO ADDITIONAL REQUESTS OR COMPLAINTS. CALL LIGHT WITHIN REACH.
--- NOTE | 2022-11-02 10:16 | NUR ---
THIS RN TO ROOM TO CHECK ON PT. PT UPTO CHAIR, RESTING WITH EYES CLOSED. RESPIRATIONS EVEN AND UNLABORED. PT ALLOWED TO REST. CALL LIGHT WITHIN REACH.
--- NOTE | 2022-11-02 10:20 | NUR ---
INTO ROOM TO SPEAK WITH PATIENT. PATIENT SLEEPING IN CHAIR, AWAKENS TO VOICE. ASKED PATIENT HOW HER STAY HAD BEEN GOING AND HOW SHE FELT ABOUT DISCHARGE. ADVISED THATH I WOULD CONTACT HER DAUGHTER BRUCE TO DISCUSS FURTHER, BUT PATIENT STATES SHE KNOW THAT HER DAUGHTER WOULD LIKE HER TO GO TO A FACILITY FOR FURTHER PT. PATIENT STATES SHE IS AGREEABLE SHE HAS BEEN DEPRESSED LATELY. ADVISED I WILL SPEAK WITH BRUCE THEN FOLLOW UP WITH HER. CALLED SPOKE WITH BRUCE CELSO, PATIENTS DAUGHTER. BRUCE STATES THAT THE PATIENT IS LIVING WITH HER AND SHE IS CONCERNED ABOUT HER SAFETY WHEN SHE RETURNS HOME. 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 BRUCE IS CONCERNED HER MOTHER IS NOT STONG ENOUGH TO DO SO AT THIS TIME AND WOULD BENEFIT FROM FURTHER PT. DISCUSSED MEDICARE PAYMENT FOR SNF AND CURRENT AVAILABLE FACILITIES. BRUCE WOULD LIKE TO PURSUE 21 DAY STAY AT [facility]. I ADVISED I WILL UPDATE HER WHEN WE HEAR FROM THE FACILITY. DISCUSSED UPDATE WITH PATIENT, WHO IS AGREEABLE TO THE PLAN. CHART FAXED TO YAYO AT [facility] FOR REVIEW.
--- NOTE | 2022-11-02 11:03 | NUR ---
HOURLY ROUDNING: MEDICATION DUE. PT RESTING WITH EYES CLOSED, RESPIRATIONS EVEN AND UNLABORED. PT AWAKENS TO LIGHT TOUCH. MEDICAITON GIVEN. PT RPEORTS 1/10 PAIN IN HIPS AND HEADACHE, PT DENIES NEED FOR ADDIITONAL PAIN MEDICATION. IV ABX COMPLETE. IV FLUSHED AND SALINE LOCKED. ALCOHOL CAP APPLIED. PT DRIFTS BACK TO SLEEP, NO ADDITONAL REQUESTS OR COMPOALINTS. CALL LIGHT WITHIN REACH.
[2022-11-02] MEDS ORDERED: METOPROLOL SUCC50 MG PO (11:07)
[2022-11-02] MEDS ORDERED: VENTOLIN HFA18 GM INH (11:07)
[2022-11-02] MEDS ORDERED: ELIQUIS5 MG PO (11:07)
[2022-11-02] MEDS ORDERED: LOVASTATIN40 MG PO (11:07)
[2022-11-02] MEDS ORDERED: DULOXETINE HCL20 MG PO (11:08)
[2022-11-02] MEDS ORDERED: HYDROCODON-ACE1 EA10 PO (11:08)
[2022-11-02] MEDS ORDERED: BENZONATATE100 MG PO (11:09)
[2022-11-02] MEDS ORDERED: TRAZODONE HCL100 MG PO (11:09)
[2022-11-02] MEDS ORDERED: FUROSEMIDE20 MG PO (11:09)
[2022-11-02] MEDS ORDERED: POTASSIUM CHLOR8 ME1 PO (11:09)
[2022-11-02] MEDS ORDERED: FLUTICASONE-SA1 EAC5 INH (11:10)
[2022-11-02] MEDS ORDERED: MUCINEX600 MG PO (11:10)
[2022-11-02] MEDS ORDERED: PREDNISONE20 MG PO (11:11)
[2022-11-02] MEDS ORDERED: ALLOPURINOL100 MG PO (11:11)
--- NOTE | 2022-11-02 12:11 | NUR ---
THIS RN TO ROOM TO CHECK ON PT. PT UP TO CHAIR VISITING WITH FAMILY. PT DENIES PAIN AND NASUEA. LUNCH DELIVERD TO PT. PT REPORTRS FEELIGN "MUCH BETTER." NO ADDITIONAL REQUESTS OR COMPLAINTS. CALL LIGHT WITHIN REACH. FAMILY AT BEDSIDE.
--- NOTE | 2022-11-02 13:06 | NUR ---
HOURLY ROUNDING: PT UP TO CHAIR. PT REPORTS 1/10 HEADACHE AND 1/10 BILATERAL HIP PAIN THAT IS WELL CONTROLLED. PT REQUESTS A SHOWER, DELLA, HELPING HAND RN TO ROOM TO ASSIST PT WITH SHOWER. PT DENIES ADDITIONAL REQUESTS OR COMPLAINTS. CALL LIGHT WITHIN REACH.
--- NOTE | 2022-11-02 14:00 | NUR ---
AFTERNOON ASSESSMENT DUE. PT FINISHED WITH SHOWER AND BACK TO CHAIR. PT REQUESTS ASSISTANCE UP TO RESTROOM. STAND BY ASSIST WITH FWW UP TO RESTROOM. PT VOIDS CONCENTRATED YELLOW URINE. PT ASSISTED WITH NEENA CARE. ALLEVYN TO BACKSIDE REMOVED, NO SKIN BREAKDOWN NOTED, BRUSIING NOTED WITH SMALL AREA OF DRYER SKIN, PHOTOGRAPHS TAKE. ALLEVYN REAPPLIED OVER SOFTER AREA. NEENA AREA REMAINS REDENED, MICONAZOLE POWERER REAPPLIED TO NEENA AREA, UNDER PANNUS, AND BREASTS AFTER SHOWER. PT REMAINS ALERT AND ORIENTED TO ALL. PT REPORTS 3/10 HEADACHE AND HIP PAIN THAT IS "OK FOR NOW." LUNG SOUNDS CLEAR IN UPPER LOBED, CRACKELS NOTED IN BASES. OXGYEN SATURATION REMAINS GREATER THAN 94% ON BASELINE 2L O2 BY NC. HEART TONES REGULAR WITH RATE CONTROLLED, APICAL PULSE OF 86. PHYSICAL THERAPY TO BEDSIDE TO WORK WITH PT. PT DENIES ADDITIONAL REQUESTS OR COMPLAINTS. CALL LIGHT WITHIN REACH.
--- NOTE | 2022-11-02 14:00 | NUR ---
PT GOT SHOWER PT BACK IN CHAIR CALL LIGHT WITHIN REACH NO FURTHER TASKS AT THIS TIME
--- NOTE | 2022-11-02 16:34 | NUR ---
THIS RN TO ROOM TO CHECK ON PT. PT REMAINS UP TO CHAIR. PT REPORTS 3/10 HIP PAIN AND 2/10 HEADACHE. PT DENIES NEED FOR ADDITIONAL PAIN MEDICATION. PT TELL STORIES ABOUT HER FAMILY, NO NEED TO CATCH BREATH BETWEEN WORDS. PT TOELRATIN 2L O2 BY NC WITH OXGYEN SATURATIONS ABOVE 90%. NO ADDITIONAL REQUESTS OR COMPLAINTS. CALL LIGHT WITHIN REACH.
--- NOTE | 2022-11-02 17:09 | NUR ---
PT HERE FOR FLU AND PNEUMONA. PT UP WITH 1 PERSN ASSIST AND FWW TO AMBLUATE IN ROOM, TO RESTROOM, SHOWER, AND TO CHAIR THIS SHIFT. PT PARTICIPATING IN PHYSICAL THERAPY. ANXIETY ATTACK THIS MORNING RELATED TO DISCHARGE PLAN. MEDICAITON GIVEN. CASE MANAGEMENT FORMED PLAN WITH PT AND FAMILY THAT MEETS PTS NEEDS AND EXPECTATIONS. ALLEVYN TO GLUTEAL AREA CHANGED, SKIN IMPROVEDD. PT TOLRATING REGULAR DIET WITH GOOD APPTITIE, NO NAUSEA THIS SHIFT. HEART RATE REMAINS WELL CONTROLED. PT TOLERATING 2L O2 BY NC WHICH IS HER BASELINE, SATURATIONS ABOVE 92%. PT USES HOME CPAP WHEN SLEEPING. SCHEDULED NEBULIZER TREATEMENTS GIVEN. PT ALERT AND ORENTIED. FAMILY AT BEDSIDE INTERMITTANTLY. PT VOIDING QUANTITY SUFFICIENT. PT USES CALL LIGHT AND MAKES NEEDS KNOWN
--- NOTE | 2022-11-02 18:43 | NUR ---
THIS RN TO ROOM TO CHECK ON PT. PT UP TO CHAIR, VISITING WITH FAMILY. PT REPORTS PAIN IS WELL CONTROLLED. PT DENIES NAUSEA. PT PROVIDED PUDDING FOR SNACK PER HER REQUEST. NO ADDITONAL REQUESTS OR COMPLAINTS. CALL LIGHT WITHIN REACH.
--- NOTE | 2022-11-02 19:59 | NUR ---
PATIENT SITTING UP IN CHAIR, NO DISTRESS. PATIENT IS CURRENTLY ON 4L OXYGEN PER NC, RESPIRATIONS EVEN AND NON LABORED. PATIENT REPORTS 5/10 CHRONIC BACK PAIN, NORCO IN USE FOR THIS. PATIENT DENIES SHORTNESS OF BREATH AT THIS TIME. FRESH WATER PROVIDED TO PATIENT. ENCOURAGED PATIENT TO CALL STAFF IF SHE HAS NEEDS.
--- NOTE | 2022-11-03 03:00 | NUR ---
REPORT RECEIVED FROM SAMIM YOU. PT RESTING IN BED WITH EYES CLOSED, HEAD OF BED ELEVATED TO 15 DEGREES. BED RAILS UP. CALL LIGHT WITHIN REACH. PT ALLOWED TO REST.
--- NOTE | 2022-11-03 05:06 | NUR ---
PT CALL LIGHT ON. PT REQUESTS ASSISTANCE UP TO RESTROOM AND REQUESTS BREATHING TREATMENT. BREATHING TREATMENTS GIVEN. LUNG SOUNDS CLEAR IN UPPER LOBES WITH CRACKELS IN BASES. OXYGEN SATURATIONS DOWN TO 84% ON 2L O2 BY NC WHILE PT IS UP IN THE ROOM. PT RECOVERS AFTER BREATHING TREATEMENT AND WITH OXGYEN INCREASED TO 4L O2 BY NC FOR A TIME. PT WEANED BACK TO 2L O2 BY NC AND MAINTAINS OXGYEN SATURATIONS ABOVE 90%. PT HAS TROUBEL TALKING DUE TO SHORTNESS OF BREATH FOR A TIME, ONCE RECOVERED PT STATES THAT GETTING UP "MADE IT REALLY HARD TO BREATH." PT ASSSISTED BACK TO BED. NO ADDIITONAL REQUESTS OR COMPLAINTS. CALL LIGHT WITHIN REACH. BED RAILS UP. PT DECLINES CPAP AT THIS TIME.
--- NOTE | 2022-11-03 07:10 | NUR ---
THIS RN TO ROOM TO CHECK ON PT. PT RESTING IN BED, WATCHING TV. PT DENIES PAIN AND NAUSEA. PT DENIES SHORTNESS OF BREATH AT THIS TIME. NO ADDIITONAL REQUESTS OR COMPLAINTS. CALL LIGHT WITHIN REACH. BED RAILS UP.
--- NOTE | 2022-11-03 08:00 | NUR ---
Spoke with Dr. Payne and asked this pt is dischargable today. She confirms. Spoke with pt and asked if she is agreeable to go to [facility] today if they have a bed available and she agrees. She asked if I could call her daughter. Called her daughter and asked if they could transport this pt today if there is a bed open. Daughter states this afternoon would be fine and could take her at 1:30 pm. Texted [facility] and asked if they could take this pt today as we are at capacity and needing rooms. She states they could accept this pt this afternoon after [address] Payne and she will complete discharge and orders.
--- NOTE | 2022-11-03 08:07 | NUR ---
MORNING ASSESSMENT AND MEDICATION DUE. PT UP TO CHAIR, GOT UP WITH STAND BY ASSIST AND FWW WITH CHILD CARE ATTENDANT. RT TO BEDSIDE FOR BREATHING TREATMENT. PT RPEORTS 7/10 HIP PAIN AND /10 HEADACHE. SEE MAR FOR MEDICATION GIVEN. PT ALERT AND ORIENTED TO ALL. LUNG SOUNDS REMAIN CLEAR IN UPPER LOBES WITH CRACKELS NOTED IN LOWER LOBES. NORMAL WORK OF BREATHING NOTED. PT ABLE TO CARRY ON CONVERSATION WITH OUT STOPPING TO CATCH HER BREATH. PRODUCTIVE COUGH WITH YELLOW SPUTUM NOTED. HEART TONES REMAIN IREGULAR, APICAL PULSE OF 68. SKIN UNCHANGED, AREA TO GLUTEAL CHEEK IMPROVING. ACAPELLA USE DEMONSTRATED. PT UPDATED ON PLAN OF CARE. NO ADDITIONAL REQUESTS OR COMPLAINTS. PT EATING BREAKFAST. CALL LIGHT WITHIN REACH.
--- NOTE | 2022-11-03 09:36 | NUR ---
THIS RN TO ROOM TO CHECK ON PT. PT UP TO CHAIR, VISITING WITH CONSTRUCTION MGR. PT VERBALIZES UNDERSTANDING OF TRANSFER TO FACILITY TODAY. PT DENIES ANY PAIN AND NAUSEA. PT HAS ICE PACK IN PLACE OVER BACK OF NECK, WHICH SHE REPORTS HAS RESOLVED HEADACHE. PT ASSISTED WITH RESPOITIONING IN CHAIR. PT DENIES ADDITONAL REQEUSTS OR COMPLAINTS. CALL LIGHT WITHIN REACH.
--- NOTE | 2022-11-03 10:25 | NUR ---
Face sheet, orders, PAS[facility], covid test faxed to [facility]. Pt's daughter will transport pt to [facility] at 13:30.
--- NOTE | 2022-11-03 10:30 | NUR ---
THIS RN TO ROOM TO CHECK ON PT. PT UP TO CHAIR, RESTING WITH EYES CLOSED. PT AWAKENS TO VOICE. PT DENIES PAIN AND NASUEA. PT DENIES REQUESTS OR COMPLAINTS. CALL LIGHT WITHIN REACH.
--- NOTE | 2022-11-03 12:33 | NUR ---
LUNCH DELIVERED TO PT. PT UP TO CHAIR AND EATING. PT REPORTS 3/10 HIP PAIN THAT IS WELL CONTROLLED. PT DRESSED WITH ASSISTANCE FROM MORTUARY TECHNICIAN. PT DENIES ADDITIONAL REEUSTS OR COMPLAINTS. PT VERBALIZES UNDERSTANDING OF PLAN FOR DISCHARGE. CALL LIGHT WITHIN REACH.
--- NOTE | 2022-11-03 13:07 | NUR ---
PT READY FOR DISCHARGE. PT DRESSED WITH 1 PERSON ASSIST FROM DATA MODELING SPECIALIST. VITAL SIGNS STABLE. DISCHRAGE INSTRUCTIONS REVIEWED WITH PT. PT VERBALIZES UNDERSTANDING. PTS DAUGHTER, BRUCE, UPDATED, AND STATES HER QUESTIONS HAVE BEEN ANSWERED. PT TRANSFERED TO WHEELCHAIR WITH ONE PERSON ASSIST AND FWW. PT WHEELED TO FRONT OF HOSPITAL TO MEET FAMILY. NO ADDITIONAL REQUESTS OR CONCERNS.
== END 2022-11-03 13:18 | DRG 193 ==
LOC: ED 09:55 → MS 15:48 → CCU 10-29 11:50 → MS 10-31 21:40
PROVIDERS: ADMIT Family Medicine; ATTEND Internal Medicine
PROC: 5A09457 Assistance with Respiratory Ventilation, 24-96 Consecutive Hours, Continuous Positive Airway Pressure (ICD-10-PCS; principal; 2022-10-27)
DX: J10.01 Influenza due to other identified influenza virus with the same other identified influenza virus pneumonia (principal); J96.01 Acute respiratory failure with hypoxia; Z20.822 Contact with and (suspected) exposure to COVID-19; I48.91 Unspecified atrial fibrillation; E78.5 Hyperlipidemia, unspecified; J44.9 Chronic obstructive pulmonary disease, unspecified; I10 Essential (primary) hypertension; M10.9 Gout, unspecified; F32.A Depression, unspecified; G47.33 Obstructive sleep apnea (adult) (pediatric); Z99.81 Dependence on supplemental oxygen; Z90.49 Acquired absence of other specified parts of digestive tract; Z98.890 Other specified postprocedural states; Z79.01 Long term (current) use of anticoagulants; Z79.899 Other long term (current) drug therapy
CPT/HCPCS: 36415; 36600; 71045; 80048; 80053; 82803; 83605; 83735; 83880; 84100; 84484; 85025; 87040; 93005; 93010; 94640; 94660; 94668; 94760; 94799; 96365; 96375; 97110; 97116; 97162; 99285-25; A9270; C9803; J0456; J0696; J1650; J1940; J2060; J2930; J7060; J7512; U0003

== ENCOUNTER 2023-04-13 14:12 | Emergency (ER) | payer MEDICARE ==
[~2023-04-13] VITALS: Ht 152.4 cm; Wt 82.5 kg
[~2023-04-13 14:12] MED LIST changes: +ALBUTEROL2.5 MG/3 M INH; +BENZONATATE100 MG PO; +DULOXETINE HCL20 MG PO; +DULOXETINE HCL60 MG PO; +ELIQUIS5 MG PO; +FISH OIL 1,2001 EACH PO; +FLUTICASONE-SA1 EAC5 INH; +FUROSEMIDE20 MG PO; +HYDROCODON-ACE1 EA10 PO; +METOPROLOL SUCC50 MG PO; +MUCINEX600 MG PO; +POTASSIUM CHLOR8 ME1 PO; +PREDNISONE20 MG PO; +WARFARIN SODIUM5 MG PO
--- OUTSIDE RECORDS SUMMARY | 2023-04-13 14:14 | XMS ---
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 If patient is seen in the ED during business hours. Please contact CHWs at [facility]. Care Recommendation: This patient has [...] providing care. E.D. VISIT COUNT (12 MO.) [address] [facility] TOTAL 3 NOTE: Visits indicate total known visits. ED/UCC VISIT TRACKING (12 MO.) 04/13/2023 14:13 [facility] TYPE: Emergency COMPLAINT: - LOW O2 SATS 10/27/2022 09:56 [facility] TYPE: Emergency COMPLAINT: - CHEST PAIN, DIFFICULTY BREATHING 10/26/2022 13:09 [facility] TYPE: Emergency COMPLAINT: - SOB, BODY ACHES, COUGH DIAGNOSES: - Chronic obstructive pulmonary disease with (acute) exacerbation - Contact with and (suspected) exposure to COVID-19 - Cough, unspecified - Dependence on supplemental oxygen - Gout, unspecified - Heart failure, unspecified - Hypertensive heart disease with heart failure - Influenza due to other identified influenza virus with other respiratory manifestations - Other shelter (current) drug therapy - Personal history of nicotine dependence - Sleep apnea, unspecified - Type 2 diabetes mellitus without complications - Unspecified atrial fibrillation INPATIENT VISIT TRACKING (12 MO.) 10/27/2022 15:48 [facility] TYPE: Medical Surgical COMPLAINT: - FLU, PNEUMONIA DIAGNOSES: - Acquired absence of other specified parts of digestive tract - Acquired absence of other specified parts of digestive tract - Acute respiratory failure with hypoxia - Acute respiratory failure with hypoxia - Chronic obstructive pulmonary disease, unspecified - Chronic obstructive pulmonary disease, unspecified - Contact with and (suspected) exposure to COVID-19 - Contact with and (suspected) exposure to COVID-19 - Dependence on supplemental oxygen - Dependence on supplemental oxygen - Depression, unspecified - Depression, unspecified - Essential (primary) hypertension - Essential (primary) hypertension - Gout, unspecified - Gout, unspecified - Hyperlipidemia, unspecified - Hyperlipidemia, unspecified - Influenza due to other identified influenza virus with other respiratory manifestations - Influenza due to other identified influenza virus with the same other identified influenza virus pneumonia - Influenza due to other identified influenza virus with the same other identified influenza virus pneumonia - senior living (current) use of anticoagulants - senior living (current) use of anticoagulants - Obstructive sleep apnea (adult) (pediatric) - Obstructive sleep apnea (adult) (pediatric) - Other shelter (current) drug therapy - Other adjunct faculty for medical terminology (current) drug therapy - Other specified postprocedural states - Other specified postprocedural states - Unspecified atrial fibrillation - Unspecified atrial fibrillation [email or web address]
[2023-04-13] MEDS ORDERED: SPIRIVA18 MCG INH (16:27)
[2023-04-13] MEDS ORDERED: FUROSEMIDE40 MG PO (16:31)
[2023-04-13] MEDS ORDERED: VENTOLIN HFA18 GM INH (19:06)
[2023-04-13] MEDS ORDERED: PREDNISONE20 MG PO (19:06)
[2023-04-13 19:52] VITALS: BP 128/77
--- NOTE | 2023-04-14 23:58 | EKG ---
[facility] [address] [facility] [place] [address] Signed Sinus rhythm with premature atrial complexes Rightward axis Low voltage QRS T wave abnormality, consider inferior ischemia T wave abnormality, consider anterolateral ischemia Abnormal ECG When compared with ECG of 29-OCT-2022 10:06, Significant changes have occurred Confirmed by RUMA DUPREE MD ([id number] on 04/14/2023 11:58:11 PM Electronically Signed By: RUMA DUPREE MD 04/14/23 2358 PATIENT NAME: GABRIEL HOUSTON Electrocardiogram DATE OF : 53 PHYSICIAN: RUMA DUPREE MD REPORT #: [id number] REPORT IS CONFIDENTIAL AND NOT TO BE RELEASED WITHOUT AUTHORIZATION
== END 2023-04-13 19:53 | disposition home or self-care (01) ==
LOC: ED 14:12
DX: J44.1 Chronic obstructive pulmonary disease with (acute) exacerbation (principal); I11.0 Hypertensive heart disease with heart failure; I50.9 Heart failure, unspecified; I48.91 Unspecified atrial fibrillation; E78.5 Hyperlipidemia, unspecified; E11.43 Type 2 diabetes mellitus with diabetic autonomic (poly)neuropathy; K31.84 Gastroparesis; Z87.891 Personal history of nicotine dependence
CPT/HCPCS: 36415; 71045; 71260; 80053; 82803; 83880; 84484; 85025; 85379; 85610; 87502; 93005; 93010; 94640; 99406; U0003

== ENCOUNTER 2023-11-19 13:23 | Emergency (ER) | payer MEDICARE ==
[~2023-11-19] VITALS: Ht 152.4 cm; Wt 74.3 kg
[~2023-11-19 13:23] MED LIST changes: +BUDESONIDE0.5 MG/2 M INH; +FUROSEMIDE40 MG PO; +MIRTAZAPINE7.5 MG PO
[2023-11-19 14:49] LABS: BASOPHILS 0.7 % (0-2); EOSINOPHILS 1.2 % (0-6); HEMATOCRIT 36.1 % (35.0-50.0); HEMOGLOBIN 11.4 g/dL (12.0-18.0); LYMPHOCYTES 9.6 % (24-44); MCHC 31.5 g/dl (30-36); MCV 92.2 fl (81-99); NEUTROPHILS 80.5 % (39-80); PLATELET COUNT 226 K/uL (140-440); RBC 3.91 M/ul (4.3-5.7); RDW 14.7 (10.5-15.0)
[2023-11-19 15:05] LABS: ALBUMIN/GLOBULIN RATIO 0.83 (1.1-2.4); ANION GAP 2.2 (7-21); BILIRUBIN, TOTAL 0.9 ng/dL (0.2-1.0); BUN/CREATININE RATIO 15.9 (6.0-28.6); CALCIUM 8.7 mg/dL (8.5-10.1); CREATININE, SERUM 0.88 mg/dL (0.55-1.02); POTASSIUM 4.2 mmol/L (3.5-5.1); PROTEIN, TOTAL 6.6 g/dL (6.4-8.2)
[2023-11-19 15:14] LABS: INR 3.37 (0.80-1.30); PROTIME 33.8 Sec (11.2-14.2)
[2023-11-19 17:11] VITALS: BP 116/83
== END 2023-11-19 17:13 | disposition home or self-care (01) ==
LOC: ED 13:23
PROVIDERS: Emergency Medicine
DX: D68.32 Hemorrhagic disorder due to extrinsic circulating anticoagulants (principal); T45.515A Adverse effect of anticoagulants, initial encounter; S80.11XA Contusion of right lower leg, initial encounter; W18.30XA Fall on same level, unspecified, initial encounter; L89.159 Pressure ulcer of sacral region, unspecified stage; I11.0 Hypertensive heart disease with heart failure; I50.9 Heart failure, unspecified; I48.91 Unspecified atrial fibrillation; E11.9 Type 2 diabetes mellitus without complications; J43.9 Emphysema, unspecified; Z87.891 Personal history of nicotine dependence; Z79.01 Long term (current) use of anticoagulants; Z79.899 Other long term (current) drug therapy
CPT/HCPCS: 36415; 72192; 73502; 73560; 80053; 85025; 85610; 99284-25

== ENCOUNTER 2023-12-31 13:42 | Emergency (ER) | payer MEDICARE ==
[~2023-12-31] VITALS: Ht 152.4 cm; Wt 69.4 kg
[2023-12-31] MEDS ORDERED: Methylnaltrexone Bromide 12 MG/0.6 ML VIAL SUB-Q ONE (15:00)
[2023-12-31] MEDS ORDERED: SOD PHOSPHATE/SOD BIPHOSPHATE 132 ML BTL PR ONE (16:30)
[2023-12-31] MEDS ORDERED: MAGNESIUM CITRATE 300 ML BTL PO ONE (17:30)
== END 2023-12-31 17:40 | disposition home or self-care (01) ==
LOC: ED 13:42
DX: K59.00 Constipation, unspecified (principal); J43.9 Emphysema, unspecified; I11.0 Hypertensive heart disease with heart failure; I50.9 Heart failure, unspecified; E11.9 Type 2 diabetes mellitus without complications; I48.91 Unspecified atrial fibrillation; Z87.891 Personal history of nicotine dependence; Z79.01 Long term (current) use of anticoagulants
CPT/HCPCS: 74018; 96372; 99283-25; J2212